=== PATIENT | male | born 1985 | race Caucasian/White ===

== ENCOUNTER 2017-10-07 21:17 | Inpatient (IN) | payer BC ==
[2017-10-07] MEDS ORDERED: ACETAMINOPHEN TAB 500 MG TAB PO STA (22:18)
[2017-10-07] MEDS ORDERED: cefTRIAXone IN SWFI 2,000 MG/20 ML SYRINGE IVP STA (22:18)
[2017-10-07 22:46] LABS: ALT 71 U/L (21-72); AST 49 U/L (17-59); Alkaline Phosphatase 135 U/L (38-126); Anion Gap 17 mmol/L; Blood Urea Nitrogen 20 mg/dL (9-20); Calcium 8.8 mg/dL (8.4-10.2); Carbon Dioxide 23 mmol/L (22-30); Chloride 91 mmol/L (98-107); Glucose 160 mg/dL (74-99); INR 1.1 (<1.2); Partial Thromboplastin Time 24.3 sec (22.0-30.0); Potassium 3.7 mmol/L (3.5-5.1); Sodium 131 mmol/L (137-145)
[2017-10-07 22:49] LABS: Basophils % (A) 0 %; Eosinophils % (A) 0 %; HCT 38.2 % (39.0-53.0); HGB 13.2 gm/dL (13.0-17.5); Lymphocytes # (A) 0.5 k/uL (1.0-4.8); Lymphocytes % (A) 4 %; MCH 27.5 pg (25.0-35.0); MCHC 34.5 g/dL (31.0-37.0); MCV 79.9 fL (80.0-100.0); Mean Platelet Volume 7.3; Monocytes # (A) 0.4 k/uL (0-1.0); Monocytes % (A) 3 %; Neutrophils # (A) 12.2 k/uL (1.3-7.7); Neutrophils % (A) 92 %; Platelet Count 237 k/uL (150-450); RBC 4.79 m/uL (4.30-5.90); RDW 13.4 % (11.5-15.5); WBC 13.3 k/uL (3.8-10.6)
--- NOTE | 2017-10-07 23:03 | XR ---
EXAMINATION TYPE: XR chest 2V DATE OF EXAM: 10/07/2017 COMPARISON: NONE HISTORY: Fever TECHNIQUE: Frontal and lateral views of the chest are obtained. FINDINGS: Heart and mediastinum are normal. Lungs are clear. Diaphragm is normal. Bony thorax appear s normal. IMPRESSION: Normal chest
[2017-10-07] MEDS: SODIUM CHLORIDE 0.9% 500 ML IV SCH (23:07)
--- NOTE | 2017-10-07 23:43 | CT ---
EXAMINATION TYPE: CT abdomen pelvis w con DATE OF EXAM: 10/07/2017 COMPARISON: HISTORY: nausea, fever CT DLP: 1575.50 mGycm Automated exposure control for dose reduction was used. TECHNIQUE: Helical acquisition of images was performed from the lung bases through the pelvis. CONTRAST: Performed without Oral Contrast and with IV Contrast, patient injected with 100 mL of Isovue 300. FINDINGS: Lung bases are clear. There is no pleural effusion. Heart size is normal. There is no pericardial eff usion. Liver spleen pancreas gallbladder appear normal. Bile ducts are not dilated. There is no adrenal mass . Kidneys show satisfactory contrast opacification. There is no hydronephrosis. There is no retroperi toneal adenopathy. There is no ascites. Appendix appears normal. Appendix measures 7 mm. I see no int estinal wall thickening. There are no dilated loops. Bladder distends smoothly. There is no pelvic ma ss. There is no ascites. There is no sign of free air. There is small umbilical hernia that contains fat. The bony structures appear normal. IMPRESSION: NEGATIVE CT SCAN OF THE ABDOMEN AND PELVIS. SMALL UMBILICAL HERNIA.
[2017-10-08] MEDS: SODIUM CHLORIDE 0.9% 500 ML IV SCH ×3 (00:30→01:45)
[2017-10-08 00:38] LABS: Amorphous Sediment,Urine Rare /hpf; Appearance,Urine Clear (Clear); Bacteria,Urine Rare /hpf; Bilirubin,Urine Negative (Negative); Blood,Urine Small (Negative); Color,Urine Yellow; Glucose,Urine (UA) Negative (Negative); Hyaline Casts,Urine 53 /lpf (0-2); Ketones,Urine Negative (Negative); Leukocyte Esterase,Urine Negative (Negative); Mucus,Urine Rare /hpf; Nitrite,Urine Negative (Negative); Protein,Urine 1+ (Negative); RBC,Urine 2 /hpf (0-5); Squamous Epithelial Cell,Urine <1 /hpf (0-4); Urobilinogen,Urine <2.0 mg/dL (<2.0); WBC,Urine 7 /hpf (0-5)
[2017-10-08] MEDS ORDERED: MORPHINE SULFATE 2 MG/ML SYRINGE IV PRN (01:20)
[2017-10-08] MEDS ORDERED: NALOXONE 0.4 MG/ML 1 ML VIAL IV PRN (01:20)
[2017-10-08] MEDS ORDERED: ONDANSETRON 4 MG/2 ML VIAL IVP PRN (01:20)
--- NOTE | 2017-10-08 01:20 | ED ---
General Adult HPI - General Chief complaint: Fever Stated complaint: Diarrhea Time Seen by Provider: 10/07/17 22:17 Source: patient Mode of arrival: ambulatory Limitations: no limitations - History of Present Illness Initial comments: 31 years old male comes in with a fever chills shakes and right upper quadrant pain and the diarrhea ongoing for about 5 days now last evening ER was 101.3 his heart rate was about 120 during examination he feels weak and fatigued his noticed him shaking like to leave and asked what prompted to bring him to the ER. Denies any headache no neck stiffness complaints about the pain in the right upper quadrant area and the diarrhea no frequency urgency dysuria no symptoms of TIA or CVA - Related Data Previous Rx's Medication Instructions Recorded Ondansetron Odt [Zofran Odt] 4 mg PO Q8HR PRN #6 tab 08/26/14 Allergies Allergy/AdvReac Type Severity Reaction Status Date / Time No Known Allergies Allergy Verified 10/07/17 21:45 Review of Systems ROS Statement: Those systems with pertinent positive or pertinent negative responses have been documented in the HPI. ROS Other: All systems not noted in ROS Statement are negative. Past Medical History Past Medical History: Asthma History of Any Multi-Drug Resistant Organisms: None Reported Past Surgical History: No Surgical Hx Reported Past Psychological History: No Psychological Hx Reported Smoking Status: Former smoker Past Alcohol Use History: None Reported Past Drug Use History: Marijuana General Exam - General Exam Comments Initial Comments: General: The patient is awake and alert, in no distress, and does not appear acutely ill. Skin: Skin is warm and dry and no rashes or lesions are noted. Eye: Pupils are equal, round and reactive to light, extra-ocular movements are intact; there is normal conjunctiva bilaterally. Ears, nose, mouth and throat: There are moist mucous membranes and no oral lesions. Neck: The neck is supple, there is no tenderness no signs of meningitis Cardiovascular: There is a regular rate and rhythm. No murmur, rub or gallop is appreciated. Respiratory: To auscultation bilateral, no wheezing no rhonchi no distress respiratory maciel noticed Gastrointestinal: Soft, non-distended, non-tender abdomen without masses or organomegaly noted. There is no rebound or guarding present. Bowel sounds are unremarkable. Back: There is no tenderness to palpation in the midline. There is no obvious deformity. Musculoskeletal: Normal ROM, no tenderness, There is no pedal edema. There is no calf tenderness or swelling. No cords were appreciated. Neurological: CN II-XII intact, Cranial nerves III through XII are intact. There are no obvious motor or sensory deficits. Coordination appears grossly intact. Speech is normal. Psychiatric: Cooperative, appropriate mood & affect, normal judgment. Limitations: no limitations Course Vital Signs 10/07/17 10/07/17 10/08/17 21:42 23:11 00:10 Temperature 103.0 F H 101.3 F H Pulse Rate 133 H 113 H 96 Respiratory 20 18 18 Rate Blood Pressure 116/80 121/72 116/70 O2 Sat by Pulse 99 96 97 Oximetry EKG Findings - EKG Comments: EKG Findings:: EKG shows sinus tachycardia ventricular rate is 125 MO interval is 126 QRS duration is 82 QT/QTc is 480/04/15/2002 and 50 CK G reveals some T- wave inversion in lead [address] noticed some ST segment depression in lead 2 is well noticed S2 depression in V3 V4 V5 and V6 Medical Decision Making - Lab Data Result diagrams: 10/07/17 21:59 10/07/17 21:59 Lab Results 10/07/17 10/07/17 10/07/17 Range/Units 21:59 21:59 21:59 WBC 13.3 H (3.8-10.6) k/uL RBC 4.79 (4.30-5.90) m/uL Hgb 13.2 (13.0-17.5) gm/dL Hct 38.2 L (39.0-53.0) % MCV 79.9 L (80.0-100.0) fL MCH 27.5 (25.0-35.0) pg MCHC 34.5 (31.0-37.0) g/dL RDW 13.4 (11.5-15.5) % Plt Count 237 (150-450) k/uL Neutrophils % 92 % Lymphocytes % 4 % Monocytes % 3 % Eosinophils % 0 % Basophils % 0 % Neutrophils # 12.2 H (1.3-7.7) k/uL Lymphocytes # 0.5 L (1.0-4.8) k/uL Monocytes # 0.4 (0-1.0) k/uL Eosinophils # 0.0 (0-0.7) k/uL Basophils # 0.0 (0-0.2) k/uL PT (9.0-12.0) sec INR (<1.2) APTT (22.0-30.0) sec Sodium 131 L (137-145) mmol/L Potassium 3.7 (3.5-5.1) mmol/L Chloride 91 L (98-107) mmol/L Carbon Dioxide 23 (22-30) mmol/L Anion Gap 17 mmol/L BUN 20 (9-20) mg/dL Creatinine 0.90 (0.66-1.25) mg/dL Est GFR (CKD-EPI)AfAm >90 (>60 ml/min/1.73 sqM) Est GFR (CKD-EPI)NonAf >90 (>60 ml/min/1.73 sqM) Glucose 160 H (74-99) mg/dL Plasma Lactic Acid Gerhard 2.3 H* (0.7-2.0) mmol/L Calcium 8.8 (8.4-10.2) mg/dL Total Bilirubin 1.0 (0.2-1.3) mg/dL AST 49 (17-59) U/L ALT 71 (21-72) U/L Alkaline Phosphatase 135 H (38-126) U/L Total Protein 7.0 (6.3-8.2) g/dL Albumin 4.0 (3.5-5.0) g/dL Urine Color Urine Appearance (Clear) Urine pH (5.0-8.0) Ur Specific [place] (1.001-1.035) Urine Protein (Negative) Urine Glucose (UA) (Negative) Urine Ketones (Negative) Urine Blood (Negative) Urine Nitrite (Negative) Urine Bilirubin (Negative) Urine Urobilinogen (<2.0) mg/dL Ur Leukocyte Esterase (Negative) Urine RBC (0-5) /hpf Urine WBC (0-5) /hpf Ur Squamous Epith Cells (0-4) /hpf Amorphous Sediment (None) /hpf Urine Bacteria (None) /hpf Hyaline Casts (0-2) /lpf Urine Mucus (None) /hpf 10/07/17 10/08/17 Range/Units 21:59 00:04 WBC (3.8-10.6) k/uL RBC (4.30-5.90) m/uL Hgb (13.0-17.5) gm/dL Hct (39.0-53.0) % MCV (80.0-100.0) fL MCH (25.0-35.0) pg MCHC (31.0-37.0) g/dL RDW (11.5-15.5) % Plt Count (150-450) k/uL Neutrophils % % Lymphocytes % % Monocytes % % Eosinophils % % Basophils % % Neutrophils # (1.3-7.7) k/uL Lymphocytes # (1.0-4.8) k/uL Monocytes # (0-1.0) k/uL Eosinophils # (0-0.7) k/uL Basophils # (0-0.2) k/uL PT 11.0 (9.0-12.0) sec INR 1.1 (<1.2) APTT 24.3 (22.0-30.0) sec Sodium (137-145) mmol/L Potassium (3.5-5.1) mmol/L Chloride (98-107) mmol/L Carbon Dioxide (22-30) mmol/L Anion Gap mmol/L BUN (9-20) mg/dL Creatinine (0.66-1.25) mg/dL Est GFR (CKD-EPI)AfAm (>60 ml/min/1.73 sqM) Est GFR (CKD-EPI)NonAf (>60 ml/min/1.73 sqM) Glucose (74-99) mg/dL Plasma Lactic Acid Gerhard (0.7-2.0) mmol/L Calcium (8.4-10.2) mg/dL Total Bilirubin (0.2-1.3) mg/dL AST (17-59) U/L ALT (21-72) U/L Alkaline Phosphatase (38-126) U/L Total Protein (6.3-8.2) g/dL Albumin (3.5-5.0) g/dL Urine Color Yellow Urine Appearance Clear (Clear) Urine pH 6.0 (5.0-8.0) Ur Specific [place] 1.030 (1.001-1.035) Urine Protein 1+ H (Negative) Urine Glucose (UA) Negative (Negative) Urine Ketones Negative (Negative) Urine Blood Small H (Negative) Urine Nitrite Negative (Negative) Urine Bilirubin Negative (Negative) Urine Urobilinogen <2.0 (<2.0) mg/dL Ur Leukocyte Esterase Negative (Negative) Urine RBC 2 (0-5) /hpf Urine WBC 7 H (0-5) /hpf Ur Squamous Epith Cells <1 (0-4) /hpf Amorphous Sediment Rare H (None) /hpf Urine Bacteria Rare H (None) /hpf Hyaline Casts 53 H (0-2) /lpf Urine Mucus Rare H (None) /hpf Critical Care Time Critical Care Time: Visit has a fever ongoing abdominal pain for home last 5 days some diarrhea I do suspect that the source of infection is in the GI tract I urinalysis urine is almost unremarkable chest x-ray is normal her cultures have been doneEKG changes as well I have better troponin now patient fluids lactate is elevated CT abdomen and pelvis is normal white count is 13.3 INR is unremarkable lactate is 2.3 and urinate cultures chest x-rays normal patient is on a broad-spectrum antibiotic and now he be admitted to Dr. Jay Disposition Clinical Impression: Sepsis, Acute electrocardiogram changes, Abdominal pain Disposition: ADMITTED IP TO THIS HOSP Condition: Good Referrals: Varinder Jay MD [Primary Care Provider] - 1-2 days
[2017-10-08] MEDS: ACETAMINOPHEN TAB 325 MG TAB PO PRN ×3 (08:45→23:19)
--- NOTE | 2017-10-08 09:57 | P.CRDCN ---
History of Present Illness Consult date: 10/08/17 Chief complaint: Abdominal discomfort History of present illness: This is a pleasant 31-year-old gentleman with no significant past medical history who presented to the emergency room complaining of abdominal discomfort. The patient symptoms started about a week ago with diarrhea which was persistent for the whole week. For the last few days he has been experiencing fever and chills. When he presented to the emergency room his temperature was around 100 Fahrenheit. He continues to have spikes of high temperature associated with sweating. The patient was checked for C. diff and that came in to be unremarkable. He underwent a computed tomography scan of the abdomen as well and that showed no acute abnormalities. On physical examination he does have epigastric tenderness but without any surgical abdomen. We get involved in his care because of abnormal EKG. The EKG showed sinus tachycardia with nonspecific changes. The heart rate continues to be around 100 125 beats per minutes. The patient denies having any chest pain or chest discomfort or any shortness of breath. The first set of cardiac enzyme came in to be unremarkable. I do feel that the sinus tachycardia is related to the high temperature and also to the distress because of the abdominal discomfort. I'm going to start the patient on small dose of metoprolol at 12.5 mg by mouth twice a day. I will obtain an echocardiogram was Doppler. The patient already is getting worked up for sepsis and blood culture was sent as well. His Lactic acid came in to be slightly elevated. Overall he is hemodynamically stable beside the sinus tachycardia. Past Medical History Past Medical History: Asthma History of Any Multi-Drug Resistant Organisms: None Reported Past Surgical History: No Surgical Hx Reported Past Anesthesia/Blood Transfusion Reactions: No Reported Reaction Additional Past Anesthesia/Blood Transfusion Reaction / Comment(s): no history of blood transfusions Past Psychological History: No Psychological Hx Reported Smoking Status: Never smoker Past Alcohol Use History: None Reported Past Drug Use History: None Reported - Past Family History Father Family Medical History: Cancer, Hypertension Medications and Allergies Allergies Allergy/AdvReac Type Severity Reaction Status Date / Time No Known Allergies Allergy Verified 10/08/17 03:04 Physical Exam Vitals: Vital Signs Temp Pulse Pulse Resp BP BP Pulse Ox 10/08/17 04:00 98.4 F 96 16 133/80 100 10/08/17 01:25 100.1 F H 90 18 114/69 97 10/08/17 00:10 101.3 F H 96 18 116/70 97 10/07/17 23:11 113 H 18 121/72 96 10/07/17 21:42 103.0 F H 133 H 20 116/80 99 Intake and Output 10/07/17 10/08/17 10/08/17 22:59 06:59 14:59 Intake Total 180 Balance 180 Intake: Oral 180 Other: Voiding Method Toilet Weight 113.398 kg 110.3 kg - Constitutional General appearance: no acute distress - Respiratory Respiratory: bilateral: CTA - Cardiovascular Rhythm: regular Heart sounds: normal: S1, S2 Results 10/07/17 21:59 10/07/17 21:59 Cardiac Enzymes 10/07/17 10/07/17 Range/Units 21:59 21:59 AST 49 (17-59) U/L Troponin I 0.023 (0.000-0.034) ng/mL Coagulation 10/07/17 Range/Units 21:59 PT 11.0 (9.0-12.0) sec APTT 24.3 (22.0-30.0) sec CBC 10/07/17 Range/Units 21:59 WBC 13.3 H (3.8-10.6) k/uL RBC 4.79 (4.30-5.90) m/uL Hgb 13.2 (13.0-17.5) gm/dL Hct 38.2 L (39.0-53.0) % Plt Count 237 (150-450) k/uL Comprehensive Metabolic Panel 10/07/17 Range/Units 21:59 Sodium 131 L (137-145) mmol/L Potassium 3.7 (3.5-5.1) mmol/L Chloride 91 L (98-107) mmol/L Carbon Dioxide 23 (22-30) mmol/L BUN 20 (9-20) mg/dL Creatinine 0.90 (0.66-1.25) mg/dL Glucose 160 H (74-99) mg/dL Calcium 8.8 (8.4-10.2) mg/dL AST 49 (17-59) U/L ALT 71 (21-72) U/L Alkaline Phosphatase 135 H (38-126) U/L Total Protein 7.0 (6.3-8.2) g/dL Albumin 4.0 (3.5-5.0) g/dL Current Medications Generic Name Dose Route Start Last Admin Trade Name Freq PRN Reason Stop Dose Admin Acetaminophen 650 mg 10/08/17 01:20 10/08/17 08:45 Tylenol Tab PO 650 mg Q6HR PRN Administration Mild Pain or Fever > 100.5 Metoprolol Tartrate 12.5 mg 10/08/17 21:00 Lopressor PO BID RON Morphine Sulfate 4 mg 10/08/17 01:20 Morphine Sulfate (Inj) IV Q4HR PRN Severe Pain Naloxone HCl 0.2 mg 10/08/17 01:20 Narcan IV Q2M PRN Opioid Reversal Ondansetron HCl 4 mg 10/08/17 01:20 Zofran IVP Q8HR PRN Nausea And Vomiting Intake and Output 10/07/17 10/08/17 10/08/17 22:59 06:59 14:59 Intake Total 180 Balance 180 Intake: Oral 180 Other: Voiding Method Toilet Weight 113.398 kg 110.3 kg 10/07/17 21:59 10/07/17 21:59 Assessment and Plan Assessment: Assessment #1 abdominal discomfort associated with fever and chills and diarrhea #2 sinus tachycardia secondary to the above Plan #1 I would start the patient on small dose of metoprolol #2 obtain an echocardiogram was Doppler #3 the patient is in process to have workup for sepsis #4 C. diff was ruled out #5 continue following up with him.
[2017-10-08] MEDS: METOPROLOL TARTRATE 12.5 MG TAB PO SCH ×2 (11:04→21:00)
--- NOTE | 2017-10-08 16:29 | P.HPIM ---
History of Present Illness This is a 31 years old male past medical history of asthma who presents because of fever and chills of one week duration, with diarrhea but 56 times per day watery, nonbloody. Associated with mild epigastric pain. No nausea vomiting. No cough or shortness of breath. No urinary symptoms. In the ED patient received 1 dose of ceftriaxone Review of Systems CONSTITUTIONAL: No fever, no malaise, no fatigue. HEENT: No recent visual problems or hearing problems. Denied any sore throat. CARDIOVASCULAR: No orthopnea, PND, no palpitations, no syncope. PULMONARY: No shortness of breath, no cough, no hemoptysis. GASTROINTESTINAL: No diarrhea, no nausea, no vomiting, no abdominal pain. Normoactive bowel sounds. NEUROLOGICAL: No headaches, no weakness, no numbness. HEMATOLOGICAL: Denies any bleeding or petechiae. GENITOURINARY: Denies any burning micturition, frequency, or urgency. MUSCULOSKELETAL/RHEUMATOLOGICAL: Denies any joint pain, swelling, or any muscle pain. ENDOCRINE: Denies any polyuria or polydipsia. Past Medical History Past Medical History: Asthma History of Any Multi-Drug Resistant Organisms: None Reported Past Surgical History: No Surgical Hx Reported Past Anesthesia/Blood Transfusion Reactions: No Reported Reaction Additional Past Anesthesia/Blood Transfusion Reaction / Comment(s): no history of blood transfusions Past Psychological History: No Psychological Hx Reported Smoking Status: Never smoker Past Alcohol Use History: None Reported Past Drug Use History: None Reported - Past Family History Father Family Medical History: Cancer, Hypertension Medications and Allergies Home Medications Medication Instructions Recorded Confirmed Type Acetaminophen Tab [Tylenol Tab] 1,000 mg PO Q6HR PRN 10/08/17 10/08/17 History Allergies Allergy/AdvReac Type Severity Reaction Status Date / Time No Known Allergies Allergy Verified 10/08/17 13:19 Physical Exam Vitals: Vital Signs Temp Pulse Pulse Resp BP BP Pulse Ox 10/08/17 12:00 100.8 F H 96 16 127/68 97 10/08/17 08:00 102.2 F H 111 H 16 130/67 98 10/08/17 04:00 98.4 F 96 16 133/80 100 10/08/17 01:25 100.1 F H 90 18 114/69 97 10/08/17 00:10 101.3 F H 96 18 116/70 97 10/07/17 23:11 113 H 18 121/72 96 10/07/17 21:42 103.0 F H 133 H 20 116/80 99 Intake and Output 10/08/17 10/08/17 10/08/17 06:59 14:59 22:59 Intake Total 180 Balance 180 Intake: Oral 180 Other: Voiding Method Toilet Toilet # Voids 1 # Bowel Movements 1 Weight 110.3 kg GENERAL: The patient is alert and oriented x3, not in any acute distress. Well developed, well nourished. HEENT: Pupils are round and equally reacting to light. EOMI. No scleral icterus. No conjunctival pallor. Normocephalic, atraumatic. No pharyngeal erythema. No thyromegaly. CARDIOVASCULAR: S1 and S2 present. No murmurs, rubs, or gallops. PULMONARY: Chest is clear to auscultation, no wheezing or crackles. ABDOMEN: Soft, nontender, nondistended, normoactive bowel sounds. No palpable organomegaly. MUSCULOSKELETAL: No joint swelling or deformity. EXTREMITIES: No cyanosis, clubbing, or pedal edema. NEUROLOGICAL: Gross neurological examination did not reveal any focal deficits. SKIN: No rashes. Results CBC & Chem 7: 10/07/17 21:59 10/07/17 21:59 Labs: Abnormal Lab Results - Last 24 Hours (Table) 10/07/17 10/07/17 10/07/17 Range/Units 21:59 21:59 21:59 WBC 13.3 H (3.8-10.6) k/uL Hct 38.2 L (39.0-53.0) % MCV 79.9 L (80.0-100.0) fL Neutrophils # 12.2 H (1.3-7.7) k/uL Lymphocytes # 0.5 L (1.0-4.8) k/uL Sodium 131 L (137-145) mmol/L Chloride 91 L (98-107) mmol/L Glucose 160 H (74-99) mg/dL Plasma Lactic Acid Gerhard 2.3 H* (0.7-2.0) mmol/L Alkaline Phosphatase 135 H (38-126) U/L Urine Protein (Negative) Urine Blood (Negative) Urine WBC (0-5) /hpf Amorphous Sediment (None) /hpf Urine Bacteria (None) /hpf Hyaline Casts (0-2) /lpf Urine Mucus (None) /hpf 10/08/17 Range/Units 00:04 WBC (3.8-10.6) k/uL Hct (39.0-53.0) % MCV (80.0-100.0) fL Neutrophils # (1.3-7.7) k/uL Lymphocytes # (1.0-4.8) k/uL Sodium (137-145) mmol/L Chloride (98-107) mmol/L Glucose (74-99) mg/dL Plasma Lactic Acid Gerhard (0.7-2.0) mmol/L Alkaline Phosphatase (38-126) U/L Urine Protein 1+ H (Negative) Urine Blood Small H (Negative) Urine WBC 7 H (0-5) /hpf Amorphous Sediment Rare H (None) /hpf Urine Bacteria Rare H (None) /hpf Hyaline Casts 53 H (0-2) /lpf Urine Mucus Rare H (None) /hpf Microbiology - Last 24 Hours (Table) 10/08/17 00:04 Urine Culture - Preliminary Urine,Voided Thrombosis Risk Factor Assmnt - Choose All That Apply Any of the Below Risk Factors Present?: Yes Each Factor Represents 1 point: Obesity (BMI >25), Sepsis (< 1month) Other Risk Factors: No Other congenital or acquired thrombophilia - If yes, enter type in comment: No Thrombosis Risk Factor Assessment Total Risk Factor Score: 2 Thrombosis Risk Factor Assessment Level: Low Risk Assessment and Plan Assessment: -Systemic inflammatory response with fever and tachycardia leukocytosis and -Possible gastroenteritis, with abdominal pain diarrhea -History of asthma Plan: Continue with same treatment, continue with symptomatic treatment. Patient in the emergency room got 1 dose of ceftriaxone, we'll continue with Flagyl and cipro and call ID consult. Cardiology consult is appreciated. Monitor lytes and vitals. Continue with IV fluids. send stool for studies. C. diff is negative GI and DVT prophylaxis. Pain management. Further recommendation based on the clinical course and outcomes
[2017-10-08] MEDS ORDERED: DEXTROSE 5%-0.9% NACL 1,000 ML IV SCH (16:30)
[2017-10-08] MEDS: SODIUM CHLORIDE 0.9% 1,000 ML IV SCH (16:45)
[2017-10-08] MEDS: LEVOFLOXACIN 500MG-D5W PMX 500 MG in DEXTROSE/WATER 1 100ML.BAG IVPB SCH (16:45)
[2017-10-08] MEDS: metroNIDAZOLE-NS PMX 500 MG in SALINE 1 100ML.BAG IVPB SCH ×2 (18:35→23:10)
[2017-10-08 23:19] VITALS: RESP 16
[2017-10-09 06:19] LABS: Basophils % (A) 0 %; Eosinophils # (A) 0.1 k/uL (0-0.7); Eosinophils % (A) 1 %; HCT 34.5 % (39.0-53.0); HGB 11.5 gm/dL (13.0-17.5); Lymphocytes # (A) 0.8 k/uL (1.0-4.8); Lymphocytes % (A) 9 %; MCHC 33.4 g/dL (31.0-37.0); MCV 83.8 fL (80.0-100.0); Mean Platelet Volume 6.7; Monocytes # (A) 0.6 k/uL (0-1.0); Monocytes % (A) 7 %; Neutrophils # (A) 6.7 k/uL (1.3-7.7); Neutrophils % (A) 80 %; Platelet Count 192 k/uL (150-450); RBC 4.11 m/uL (4.30-5.90); RDW 13.9 % (11.5-15.5); WBC 8.4 k/uL (3.8-10.6)
[2017-10-09 06:37] LABS: ALT 115 U/L (21-72); AST 98 U/L (17-59); Albumin 3.1 g/dL (3.5-5.0); Alkaline Phosphatase 203 U/L (38-126); Anion Gap 13 mmol/L; Blood Urea Nitrogen 11 mg/dL (9-20); Carbon Dioxide 26 mmol/L (22-30); Chloride 97 mmol/L (98-107); Glucose 99 mg/dL (74-99); Potassium 3.3 mmol/L (3.5-5.1); Sodium 136 mmol/L (137-145); Total Bilirubin 0.5 mg/dL (0.2-1.3); Total Protein 5.8 g/dL (6.3-8.2)
--- NOTE | 2017-10-09 07:23 | P.PN ---
Subjective Progress Note Date: 10/09/17 Principal diagnosis: Gastroenteritis with EKG changes. The patient is here essentially for severe intractable diarrhea which is now resolving after being rehydrated. He had significant EKG changes and was admitted but now the patient seems more stable. We suspect his symptoms were more related to the severe fever and gastrointestinal distress. He seems to be tolerating diet now and states more formed stool. Objective - Vital Signs Vital signs: Vital Signs Temp 98.6 F 10/09/17 04:00 Pulse 96 10/09/17 04:00 Resp 16 10/09/17 04:00 BP 116/67 10/09/17 04:00 Pulse Ox 96 10/09/17 04:00 Intake & Output 10/08/17 10/09/17 10/09/17 18:59 06:59 18:59 Weight 111.2 kg Other: Voiding Method Toilet Toilet # Voids 1 1 # Bowel Movements 1 - Constitutional General appearance: Present: average body habitus - EENT Eyes: Absent: abnormal pupil - Neck Neck: Absent: other - Respiratory Respiratory: bilateral: CTA - Cardiovascular Rhythm: regular Heart sounds: normal: S1, S2 Abnormal Heart Sounds: Absent: S3 Gallop - Gastrointestinal General gastrointestinal: Present: soft, tenderness Localized gastrointestinal: tender: epigastric periumbilical - Neurologic Neurologic: Present: CNII-XII intact. Absent: focal deficits - Labs CBC & Chem 7: 10/09/17 05:18 10/09/17 05:18 Labs: Abnormal Lab Results - Last 24 Hours (Table) 10/09/17 10/09/17 Range/Units 05:18 05:18 RBC 4.11 L (4.30-5.90) m/uL Hgb 11.5 L (13.0-17.5) gm/dL Hct 34.5 L (39.0-53.0) % Lymphocytes # 0.8 L (1.0-4.8) k/uL Sodium 136 L (137-145) mmol/L Potassium 3.3 L (3.5-5.1) mmol/L Chloride 97 L (98-107) mmol/L Creatinine 0.60 L (0.66-1.25) mg/dL Calcium 8.0 L (8.4-10.2) mg/dL AST 98 H (17-59) U/L ALT 115 H (21-72) U/L Alkaline Phosphatase 203 H (38-126) U/L Total Protein 5.8 L (6.3-8.2) g/dL Albumin 3.1 L (3.5-5.0) g/dL Microbiology - Last 24 Hours (Table) 10/07/17 23:11 Blood Culture - Preliminary Blood No Growth after 24 hours 10/07/17 21:59 Blood Culture - Preliminary Blood No Growth after 24 hours 10/08/17 00:04 Urine Culture - Preliminary Urine,Voided Assessment and Plan (1) SIRS (systemic inflammatory response syndrome) Current Visit: Yes Status: Acute Code(s): R65.10 - SIRS OF NON-INFECTIOUS ORIGIN W/O ACUTE ORGAN DYSFUNCTION SNOMED Code(s): 238403782 (2) Abdominal pain Current Visit: Yes Status: Acute Code(s): R10.9 - UNSPECIFIED ABDOMINAL PAIN SNOMED Code(s): 50370053 (3) Acute electrocardiogram changes Current Visit: Yes Status: Acute Code(s): R94.31 - ABNORMAL ELECTROCARDIOGRAM [ECG] [EKG] SNOMED Code(s): 078409193 Plan: We'll see if the patient tolerates diet today. Anticipate discharge if cleared by consultants later today or first thing in the morning. We'll continue to follow closely. Appreciate cardiology with infectious disease consultation. Time with Patient: Less than 30
[2017-10-09] MEDS ORDERED: PANTOPRAZOLE 40 MG/10 ML VIAL IVP SCH (09:00)
[2017-10-09] MEDS: SODIUM CHLORIDE 0.9% 1,000 ML IV SCH ×2 (09:07→19:58)
[2017-10-09] MEDS: HEPARIN SODIUM,PORCINE 5,000 UNIT/ML 1 ML VIAL SQ SCH ×2 (09:21→19:58)
[2017-10-09] MEDS: metroNIDAZOLE-NS PMX 500 MG in SALINE 1 100ML.BAG IVPB SCH ×2 (09:21→15:59)
[2017-10-09] MEDS: METOPROLOL TARTRATE 12.5 MG TAB PO SCH ×2 (09:21→19:58)
[2017-10-09] MEDS: ACETAMINOPHEN TAB 325 MG TAB PO PRN (09:21)
[2017-10-09] MEDS ORDERED: Potassium Replacement Protocol 1 EACH MISC MISCELLANE PRN (11:14)
[2017-10-09 11:20] VITALS: BMI 33.2
--- NOTE | 2017-10-09 12:10 | P.PN ---
Subjective Progress Note Date: 10/09/17 This is a pleasant 31-year-old gentleman with no significant past medical history who presented to the emergency room complaining of abdominal discomfort. The patient symptoms started about a week ago with diarrhea which was persistent for the whole week. For the last few days he has been experiencing fever and chills. When he presented to the emergency room his temperature was around 100 Fahrenheit. He continues to have spikes of high temperature associated with sweating. The patient was checked for C. diff and that came in to be unremarkable. He underwent a computed tomography scan of the abdomen as well and that showed no acute abnormalities. On physical examination he does have epigastric tenderness but without any surgical abdomen. Cardiology was initially requested to see the patient because of sinus tachycardia. He was seen in consultation yesterday by Dr. Dunbar and initiated on a small dose of metoprolol. Echocardiogram with Doppler study has been performed today but is yet pending. Patient continues to have temperatures in the range of 101. Blood culture so far are negative. His heart rate this morning is in the 80s to 90s. Blood pressure 130/60 with a heart rate in the 80s to 90s this morning, this morning's temperature 100.1. White blood cell count is normal, hemoglobin 11.5, platelet count 192. Sodium 136, potassium 3.3, BUN 11 and creatinine 0.6. AST 98 ALT 1:15 alk phos 203. CAT scan of the abdomen and pelvis was performed which came back to be negative. Objective - Vital Signs Vital signs: Vital Signs Temp 100.1 F H 10/09/17 09:10 Pulse 100 10/09/17 09:10 Resp 16 10/09/17 09:10 BP 130/65 10/09/17 09:10 Pulse Ox 97 10/09/17 09:10 Intake & Output 10/08/17 10/09/17 10/09/17 18:59 06:59 18:59 Intake Total 100 Balance 100 Weight 111.2 kg 111.2 kg Intake: Oral 100 Other: Voiding Method Toilet Toilet Toilet # Voids 1 1 1 # Bowel Movements 1 - Exam PHYSICAL EXAMINATION: GENERAL: 31-year-old gentleman in no. Distress at the time of my examination HEENT: Head is atraumatic, normocephalic. Pupils equal, round. Sclera anicteric. Conjunctiva are clear. Mucous membranes of the mouth are moist. Neck is supple. There is no elevated jugular venous pressure.] bruit is heard. HEART EXAMINATION: Heart S1, S2 normal. No murmur or gallop heard. CHEST EXAMINATION: Lungs are clear to auscultation and precussion. No chest wall tenderness is noted on palpation or with deep breathing. ABDOMEN: Soft, mild generalized tenderness . Bowel sounds are heard. No organomegaly noted. EXTREMITIES: 2+ peripheral pulses with no evidence of peripheral edema and no calf tenderness noted. NEUROLOGIC patient is awake, alert and oriented ?-3. . - Labs CBC & Chem 7: 10/09/17 05:18 10/09/17 05:18 Labs: Abnormal Lab Results - Last 24 Hours (Table) 10/09/17 10/09/17 Range/Units 05:18 05:18 RBC 4.11 L (4.30-5.90) m/uL Hgb 11.5 L (13.0-17.5) gm/dL Hct 34.5 L (39.0-53.0) % Lymphocytes # 0.8 L (1.0-4.8) k/uL Sodium 136 L (137-145) mmol/L Potassium 3.3 L (3.5-5.1) mmol/L Chloride 97 L (98-107) mmol/L Creatinine 0.60 L (0.66-1.25) mg/dL Calcium 8.0 L (8.4-10.2) mg/dL AST 98 H (17-59) U/L ALT 115 H (21-72) U/L Alkaline Phosphatase 203 H (38-126) U/L Total Protein 5.8 L (6.3-8.2) g/dL Albumin 3.1 L (3.5-5.0) g/dL Microbiology - Last 24 Hours (Table) 10/07/17 23:11 Blood Culture - Preliminary Blood No Growth after 24 hours 10/07/17 21:59 Blood Culture - Preliminary Blood No Growth after 24 hours 10/08/17 00:04 Urine Culture - Preliminary Urine,Voided Assessment and Plan Plan: Assessment and plan #1 abdominal discomfort with associated diarrhea, fever and chills. CT of the abdomen and pelvis were negative. Elevated liver enzymes #2 sinus tachycardia, secondary to above Plan We will review the patient's echocardiogram with Doppler study, continue current dose of metoprolol. If the echo is normal, we will follow this patient on a when necessary basis, please don't hesitate to call with any questions. DNP note has been reviewed, I agree with a documented findings and plan of care. Patient was seen and examined.
[2017-10-09] MEDS: POTASSIUM CHLORIDE ER 20 MEQ TAB.ER PO SCH ×2 (12:13→16:00)
[2017-10-09] MEDS: LEVOFLOXACIN 500MG-D5W PMX 500 MG in DEXTROSE/WATER 1 100ML.BAG IVPB SCH (17:16)
--- NOTE | 2017-10-09 18:37 | ECHOF ---
Referral Reason:tachycardia MEASUREMENTS -------- HEIGHT: 182.9 cm WEIGHT: 111.1 kg BP: 116/67 RVIDd: 3.3 cm (< 3.3) IVSd: 1.3 cm (0.6 - 1.1) LVIDd: 5.0 cm (3.9 - 5.3) LVPWd: 1.2 cm (0.6 - 1.1) IVSs: 1.6 cm LVIDs: 3.4 cm LVPWs: 1.6 cm LA Diam: 3.0 cm (2.7 - 3.8) LAESV Index (A-L): 15.51 ml/m Ao Diam: 3.7 cm (2.0 - 3.7) AV Cusp: 2.6 cm (1.5 - 2.6) MV EXCURSION: 17.007 mm (> 18.000) MV EF SLOPE: 134 mm/s (70 - 150) EPSS: 0.5 cm MV E Enrike: 0.85 m/s MV DecT: 175 ms MV A Enrike: 0.69 m/s MV E/A Ratio: 1.23 RAP: 15.00 mmHg FINDINGS -------- Sinus rhythm. This was a technically good study. The left ventricular size is normal. There is mild concentric left ventricular hypertrophy. Overa ll left ventricular systolic function is normal with, an EF between 60 - 65 %. The right ventricle is mildly enlarged. Normal LA size by volume 22+/-6 ml/m2. The right atrium is normal in size. The aortic valve is trileaflet and appears structurally normal. The mitral valve is normal. The tricuspid valve appears structurally normal. Trace/mild (physiologic) pulmonic regurgitation. The aortic root size is normal. The inferior vena cava is dilated with no significant inspiratory collapse which is consistent estima keith right atrial pressure of >20 mmHg. There is no pericardial effusion. CONCLUSIONS -------- 1. Sinus rhythm. 2. This was a technically good study. 3. The left ventricular size is normal. 4. There is mild concentric left ventricular hypertrophy. 5. Overall left ventricular systolic function is normal with, an EF between 60 - 65 %. 6. The right ventricle is mildly enlarged. 7. Normal LA size by volume 22+/-6 ml/m2. 8. The right atrium is normal in size. 9. The aortic valve is trileaflet and appears structurally normal. 10. The mitral valve is normal. 11. The tricuspid valve appears structurally normal. 12. Trace/mild (physiologic) pulmonic regurgitation. 13. The aortic root size is normal. 14. The inferior vena cava is dilated with no significant inspiratory collapse which is consistent es timated right atrial pressure of >20 mmHg. 15. There is no pericardial effusion. NUMBERER AND WIRER: Puja Agustin RDCS
[2017-10-10 04:04] VITALS: TEMP 99.4
--- NOTE | 2017-10-10 06:58 | P.DS ---
Providers Date of admission: 10/08/17 01:20 Attending physician: Varinder Jay Consults: 10/08/17 01:20 Consult Physician Stat Consulting Provider: Hiram Link Consult Reason/Comments: acute EKG changes Do you want consulting provider notified?: Yes 10/08/17 16:29 Consult Physician Routine Consulting Provider: Rubi Rajput Consult Reason/Comments: elevated WBC,elevated temperatures,diarrhea x1 week Do you want consulting provider notified?: Yes, Notify in am Primary care physician: Varinder Jay - Discharge Diagnosis(es) (1) SIRS (systemic inflammatory response syndrome) Current Visit: Yes Status: Acute (2) Abdominal pain Current Visit: Yes Status: Acute (3) Acute electrocardiogram changes Current Visit: Yes Status: Acute Hospital Course: This discharge summary 31-year-old white male essentially minute for gastroenteritis but had an normal chest pain and shortness of breath. We suspect that this is related to the systemic inflammatory response with diarrhea and dehydration. He is placed on low-dose beta soumya we will temporary keep this on him until he recovers. The patient seen by cardiology and cleared after echocardiogram was fairly normal. The patient's follow-up with me in one week. Patient Condition at Discharge: Good Plan - Discharge Summary New Discharge Prescriptions: New Acetaminophen Tab [Tylenol] 650 mg PO Q6HR PRN tab PRN Reason: Mild Pain Or Fever > 100.5 Levofloxacin [Levaquin] 500 mg PO Q24H #7 tab Metoprolol Tartrate [Lopressor] 12.5 mg PO BID #60 tab metroNIDAZOLE [Flagyl] 500 mg PO TID #21 tab Discontinued Acetaminophen Tab [Tylenol Tab] 1,000 mg PO Q6HR PRN PRN Reason: Pain Or Fever > 100.5 Discharge Medication List Acetaminophen Tab [Tylenol] 650 mg PO Q6HR PRN tab 10/10/17 [Rx] Levofloxacin [Levaquin] 500 mg PO Q24H #7 tab 10/10/17 [Rx] Metoprolol Tartrate [Lopressor] 12.5 mg PO BID #60 tab 10/10/17 [Rx] metroNIDAZOLE [Flagyl] 500 mg PO TID #21 tab 10/10/17 [Rx] Follow up Appointment(s)/Referral(s): Varinder Jay MD [Primary Care Provider] - 10/16/17 3:20 pm (MONDAY) Discharge Disposition: HOME SELF-CARE
--- NOTE | 2017-10-10 07:21 | CONS ---
CONSULTATION DATE OF SERVICE: 10/09/2017 REASON FOR CONSULTATION: Fever. HISTORY OF PRESENT ILLNESS: The patient is a 31-year-old male, otherwise healthy, presenting to the ER at [facility] on 10/07/2017 with chief complaints of fever, chills and right upper quadrant pain diarrhea. The patient symptoms started with diarrhea about 5 days prior to presentation to hospital. The patient did have multiple loose stools with no blood or mucus in it. The patient felt nauseated, but no vomiting. Subsequently start having a fever of 101 degrees Fahrenheit with rigors and chills and he also had pain mostly in the epigastric or the upper quadrant area. The pain described to be more of a dull aching pain 4 to 5 over 10 and no radiation. With these symptoms, the patient presented to the [facility] ER. The patient did have a CT of abdomen and pelvis that was done with oral and IV contrast. CT abdominal pelvis was negative except small umbilical hernia. The patient did have white count of 13.0 on presentation, which has normalized to 8.4 this morning. The patient did have stool for C. difficile, which came back negative. Stool cultures are currently pending. Blood culture has been negative. Infectious Disease was consulted for further recommendation regarding antibiotic therapy as the patient did have fever of 103 on presentation down to 100.1 this morning. The patient did mention overall he is feeling better. His abdominal pain has resolved and he did have small bowel movement today. Denies having any chest pain or shortness of breath or cough. REVIEW OF SYSTEMS: CONSTITUTIONAL: Positive for weakness along with the fever. EYES: No complaint. ENT: No complaint. RESPIRATORY: No complaint. CARDIOVASCULAR: No complaint. GENITOURINARY: No complaint. GASTROINTESTINAL: As per HPI. MUSCULOSKELETAL: No complaint. INTEGUMENTARY: No complaint. PSYCHOLOGICAL: No complaint. ENDOCRINE: No complaint. NEUROLOGIC: No complaint. PAST MEDICAL HISTORY: His past medical history is significant for asthma. PAST SURGICAL HISTORY: No major surgeries. SOCIAL HISTORY: Denies smoking, drinking or drug use. FAMILY HISTORY: Father had history of cancer and hypertension. ALLERGIES: No known drug allergies. MEDICATION: Medications include the patient is currently on Tylenol, heparin, Levaquin, Lopressor, Flagyl, Narcan, Protonix. PHYSICAL EXAMINATION: On examination, blood pressure is 130/69 with a pulse of 90, temperature 98.9. He is 98% on room air. General description is a middle-aged male lying in bed in no distress. No tachypnea or accessory muscle of respiration use. HEENT examination shows slight pallor. No scleral icterus. Oral mucous membrane is dry. No pharyngeal erythema or thrush. NECK: Trachea central. No thyromegaly. LUNGS: Unlabored breathing, clear to auscultation anteriorly. No wheeze or crackle. HEART: S1, S2. Regular rate and rhythm. ABDOMEN: Soft, no tenderness. No guarding or rigidity . No organomegaly. EXTREMITIES: No edema of feet. SKIN EXAMINATION: No rash or mass palpable. NEUROLOGICAL: Patient is awake, alert, oriented x2. Mood and affect normal. LABS: Hemoglobin 11.5, white count 8.4, admission white count was 13.3. BUN of 11, creatinine 0.60. Potassium was 3.3. Liver enzymes were mildly elevated. Stool for C difficile has been negative. DIAGNOSTIC IMPRESSION AND PLAN: Patient presenting to the hospital with nausea, vomiting and diarrhea. Predominant symptoms subsequent start having a fever with a question of possible viral or bacterial etiology now with mildly elevated liver enzymes. We will make sure we are not dealing with a case of a hepatitis A. PLAN: 1. We will check an acute hepatitis panel. 2. We will switch over Levaquin and Flagyl to p.o. 3. IV fluids. 4. We will follow up on the stool culture and investigation to further adjust medication if needed. Thank you for this consultation. Will follow this patient along with you. MMODL / IJN: [id number] /
[2017-10-10] MEDS ORDERED: PANTOPRAZOLE 40 MG TABLET PO SCH (07:30)
[2017-10-10] MEDS: METOPROLOL TARTRATE 12.5 MG TAB PO SCH (07:40)
[2017-10-10] MEDS: HEPARIN SODIUM,PORCINE 5,000 UNIT/ML 1 ML VIAL SQ SCH (07:41)
[2017-10-10] MEDS: SODIUM CHLORIDE 0.9% 1,000 ML IV SCH (07:41)
[2017-10-10 07:42] VITALS: BP 141/80; PULSE 98
[2017-10-10] MEDS ORDERED: LEVOFLOXACIN 500 MG TAB PO SCH (09:00)
[2017-10-10] MEDS ORDERED: metroNIDAZOLE 500 MG TAB PO SCH (09:00)
[2017-10-10 12:46] LABS: Hepatitis A Antibody IgM Non-Reactive (Non-Reactive); Hepatitis B Core IgM Non-Reactive (Non-Reactive)
== END 2017-10-10 08:01 | disposition home or self-care (01) | DRG 392 ==
LOC: EC 21:17 → 6SEL 10-08 01:20
PROVIDERS: ADMIT Family Medicine; ATTEND Family Medicine
DX: K52.9 Noninfective gastroenteritis and colitis, unspecified (principal); E86.0 Dehydration; J45.909 Unspecified asthma, uncomplicated; R94.31 Abnormal electrocardiogram [ECG] [EKG]; Z87.891 Personal history of nicotine dependence; Z82.49 Family history of ischemic heart disease and other diseases of the circulatory system; Z80.9 Family history of malignant neoplasm, unspecified
CPT/HCPCS: 36415; 71046; 74177; 80053; 80074; 81001; 83605; 83630; 84484; 85025; 85610; 85730; 87040; 87045; 87046; 87086; 87324; 87328; 87329; 93005; 93306; 94760; 96361; 96374; 99285

== ENCOUNTER 2018-09-15 15:09 | Emergency (ER) | payer BC ==
[2018-09-15 15:17] VITALS: TEMP 97.6
[2018-09-15] MEDS ORDERED: KETOROLAC 60 MG/2 ML VIAL IVP STA (15:27)
[2018-09-15] MEDS ORDERED: DIAZEPAM 5 MG/ML 2 ML INJ IVP STA (15:28)
--- NOTE | 2018-09-15 15:51 | ED ---
General Adult HPI - General Source: patient, RN notes reviewed Mode of arrival: wheelchair Limitations: no limitations <Oj Brunson - Last Filed: 09/15/18 16:32> <Syed De Los Santos - Last Filed: 09/15/18 17:46> - General Chief complaint: Syncope Stated complaint: Back pain Time Seen by Provider: 09/15/18 15:15 - History of Present Illness Initial comments: This a 32-year-old male presents emergency Department complaining of a five-day history of right lower back pain. Patient states he thinks he tweaked it 5 days ago but it was only hurting a little bit until yesterday when he bent over to do something and the pain became excruciating. Patient states today he was going to the bathroom and the pain got so bad he got lightheaded and passed out. Patient states he did hit his head and scraped his left elbow but he has no headache now he has no numbness no weakness. Patient denies any difficulty urinating or having any urinary retention. Patient denies any numbness or weakness. Patient denies any radiation of pain. Patient states the right lower back is tender to palpation there is no central spinous process tenderness. Patient states when he moves it feels like a spasm. Patient states lying down flat alleviates most of the pain (Oj Brunson) - Related Data Home Medications Medication Instructions Recorded Confirmed Naproxen 500 mg PO Q12H PRN 09/15/18 09/15/18 Previous Rx's Medication Instructions Recorded Ketorolac [Toradol] 10 mg PO Q6HR #20 tab 09/15/18 Orphenadrine [Norflex] 100 mg PO Q12H #7 tablet.er 09/15/18 predniSONE 20 mg PO BID #10 tab 09/15/18 Allergies Allergy/AdvReac Type Severity Reaction Status Date / Time No Known Allergies Allergy Verified 09/15/18 15:46 Review of Systems ROS Other: All systems not noted in ROS Statement are negative. <Oj Brunson - Last Filed: 09/15/18 16:32> ROS Other: All systems not noted in ROS Statement are negative. <Syed De Los Santos - Last Filed: 09/15/18 17:46> ROS Statement: Those systems with pertinent positive or pertinent negative responses have been documented in the HPI. Past Medical History Past Medical History: Asthma History of Any Multi-Drug Resistant Organisms: None Reported Past Surgical History: No Surgical Hx Reported Past Anesthesia/Blood Transfusion Reactions: No Reported Reaction Additional Past Anesthesia/Blood Transfusion Reaction / Comment(s): no history of blood transfusions Past Psychological History: No Psychological Hx Reported Smoking Status: Never smoker Past Alcohol Use History: None Reported Past Drug Use History: None Reported - Past Family History Father Family Medical History: Cancer, Hypertension <Oj Brunson - Last Filed: 09/15/18 16:32> General Exam Limitations: no limitations <Oj Brunson - Last Filed: 09/15/18 16:32> - General Exam Comments Initial Comments: GENERAL: Patient is well-developed and well-nourished. Patient is nontoxic and well- hydrated and is in moderate distress. ENT: Neck is soft and supple. No significant lymphadenopathy is noted. Oropharynx is clear. Moist mucous membranes. Neck has full range of motion without eliciting any pain. EYES: The sclera were anicteric and conjunctiva were pink and moist. Extraocular movements were intact and pupils were equal round and reactive to light. Eyelids were unremarkable. PULMONARY: Unlabored respirations. Good breath sounds bilaterally. No audible rales rhonchi or wheezing was noted. CARDIOVASCULAR: There is a regular rate and rhythm without any murmurs gallops or rubs. ABDOMEN: Soft and nontender with normal bowel sounds. No palpable organomegaly was noted. There is no palpable pulsatile mass. SKIN: Skin is clear with no lesions or rashes and otherwise unremarkable. NEUROLOGIC: Patient is alert and oriented x3. Cranial nerves II through XII are grossly intact. Motor and sensory are also intact. Normal speech, volume and content. Symmetrical smile. MUSCULOSKELETAL: Normal extremities with adequate strength and full range of motion. Patient has tenderness to palpation in the right lower back in the paraspinous muscle region. Patient has no spinous process tenderness. LYMPHATICS: No significant lymphadenopathy is noted PSYCHIATRIC: Normal psychiatric evaluation. (Oj Brunson) Course <Syed De Los Santos - Last Filed: 09/15/18 17:46> Vital Signs 09/15/18 09/15/18 15:15 17:18 Temperature 97.6 F Pulse Rate 86 75 Respiratory 16 18 Rate Blood Pressure 133/91 131/84 O2 Sat by Pulse 96 95 Oximetry - Reevaluation(s) Reevaluation #1: 09/15/18 17:44 The patient was endorsed to me by Dr. Brunson at her shift change pending improvement in his pain after medication given. Patient did hurt his back with some pain radiating down to the right knee at times he was sent home from work last night due to the pain he does express improvement this is likely muscular skeletal lumbar strain he'll be discharged he is off work tonight and tomorrow night with a work note oral medications follow-up with Dr. Jay and return as needed (Syed De Los Santos) Medical Decision Making <Oj Brunson - Last Filed: 09/15/18 16:32> - Medical Decision Making EKG shows normal sinus rhythm at 60 bpm [place] interval is 1:30 QRS is 98 QT interval 404 QTC is 429. Patient's EKG shows no ST segment elevation or depression or T wave abnormalities are noted. Patient a bladder scan done and he had 0 urine in his bladder. Patient had no radiation of pain patient had no numbness or weakness Dr. De Los Santos will be taking over the care of this patient at 5 PM (Oj Brunson) Disposition <Oj Brunson - Last Filed: 09/15/18 16:32> Is patient prescribed a controlled substance at d/c from ED?: No <Syed De Los Santos - Last Filed: 09/15/18 17:46> Clinical Impression: Acute lumbar myofascial strain, Vasovagal syncope Disposition: HOME SELF-CARE Condition: Good Instructions (If sedation given, give patient instructions): Low Back Strain (ED), Lower Back Exercises (ED), Core Strengthening Exercises (ED) Prescriptions: Orphenadrine [Norflex] 100 mg PO Q12H #7 tablet.er predniSONE 20 mg PO BID #10 tab Ketorolac [Toradol] 10 mg PO Q6HR #20 tab Referrals: Varinder Jay MD [Primary Care Provider] - 1-2 days
[2018-09-15] MEDS ORDERED: HYDROmorphone 0.5 MG/0.5 ML SYRINGE IVP STA (16:31)
--- NOTE | 2018-09-15 16:34 | XR ---
EXAMINATION TYPE: XR lumbosacral spine min 4V DATE OF EXAM: 09/15/2018 COMPARISON: NONE HISTORY: Back pain TECHNIQUE: 5 views FINDINGS: Lumbar vertebra have normal spacing and alignment. Posterior elements are intact. Sacroilia c joints appear normal. IMPRESSION: Negative lumbar spine exam.
[2018-09-15 17:18] VITALS: BP 131/84; PULSE 75; RESP 18
[2018-09-15] MEDS ORDERED: predniSONE 50 MG TAB PO STA (17:42)
== END 2018-09-15 18:12 | disposition home or self-care (01) ==
LOC: EC 15:09
DX: S39.012A Strain of muscle, fascia and tendon of lower back, initial encounter (principal); R55 Syncope and collapse; X58.XXXA Exposure to other specified factors, initial encounter
CPT/HCPCS: 99284 ×2; 96374 ×2; 96375 ×3; 51798; 93005; 72110; J3360; J1885; J7512; J1170

== ENCOUNTER 2021-02-03 06:24 | Inpatient (IN) | payer BC, OTHER ==
[2021-02-03] MEDS ORDERED: MORPHINE SULFATE 4 MG/ML SYRINGE IV STA (06:44)
[2021-02-03] MEDS ORDERED: ONDANSETRON 4 MG/2 ML VIAL IVP STA (06:44)
[2021-02-03] MEDS ORDERED: SODIUM CHLORIDE 0.9% 1,000 ML IV STA (06:44)
--- NOTE | 2021-02-03 06:47 | ED ---
General Adult HPI - General Chief complaint: Abdominal Pain Stated complaint: Abd Pain Time Seen by Provider: 02/03/21 06:32 Source: patient, RN notes reviewed Mode of arrival: ambulatory Limitations: no limitations - History of Present Illness Initial comments: 35-year-old male presents to the emergency room for a chief complaint of abdominal pain. Patient states he has had right lower quadrant abdominal pain that started yesterday. Patient states nothing seems to help the pain. States that he has had some nausea vomiting. Yesterday he had a couple episodes of diarrhea but that has since resolved. Patient states she has not had an appetite and has not had anything to eat since yesterday afternoon. He denies fevers. No history of intra-abdominal surgeries.Patient has no other complaints at this time including shortness of breath, chest pain, headache, or visual changes. - Related Data Home Medications Medication Instructions Recorded Confirmed No Known Home Medications 02/03/21 02/03/21 Allergies Allergy/AdvReac Type Severity Reaction Status Date / Time No Known Allergies Allergy Verified 02/03/21 09:13 Review of Systems ROS Statement: Those systems with pertinent positive or pertinent negative responses have been documented in the HPI. ROS Other: All systems not noted in ROS Statement are negative. Past Medical History Past Medical History: Asthma History of Any Multi-Drug Resistant Organisms: None Reported Past Surgical History: No Surgical Hx Reported Past Anesthesia/Blood Transfusion Reactions: No Reported Reaction Additional Past Anesthesia/Blood Transfusion Reaction / Comment(s): no history of blood transfusions Past Psychological History: No Psychological Hx Reported Smoking Status: Never smoker Past Alcohol Use History: None Reported Past Drug Use History: Marijuana - Past Family History Father Family Medical History: Cancer, Hypertension General Exam Limitations: no limitations General appearance: alert, in no apparent distress Head exam: Present: atraumatic Eye exam: Present: normal appearance, PERRL, EOMI. Absent: scleral icterus, conjunctival injection ENT exam: Present: normal exam, mucous membranes moist Neck exam: Present: normal inspection, full ROM. Absent: tenderness Respiratory exam: Present: normal lung sounds bilaterally. Absent: respiratory distress, wheezes Cardiovascular Exam: Present: regular rate, normal rhythm, normal heart sounds GI/Abdominal exam: Present: soft, tenderness (Tenderness noted to the right lower quadrant, no tenderness elsewhere in the abdomen. Negative Rovsing sign.), normal bowel sounds. Absent: distended Neurological exam: Present: alert Course Vital Signs 02/03/21 02/03/21 02/03/21 06:26 06:36 08:27 Temperature 97.6 F 98.8 F Pulse Rate 95 81 70 Respiratory 18 18 18 Rate Blood Pressure 109/79 130/88 124/81 O2 Sat by Pulse 96 99 100 Oximetry 02/03/21 02/03/21 10:00 13:09 Temperature 97.9 F Pulse Rate 72 Respiratory 18 16 Rate Blood Pressure 134/78 O2 Sat by Pulse 98 98 Oximetry Medical Decision Making - Medical Decision Making Vitals are stable. Patient does have abdominal tenderness especially right lower quadrant. Leukocytosis is noted on laboratory evaluation. CT abdomen and pelvis did reveal acute appendicitis without definite perforation. At this time patient was treated with IV antibiotics. Dr. De La Torre was consulted, will accept admission. - Lab Data Result diagrams: 02/03/21 07:15 02/03/21 07:15 Lab Results 02/03/21 02/03/21 02/03/21 Range/Units 07:15 07:15 07:15 WBC 16.1 H (3.8-10.6) k/uL RBC 5.14 (4.30-5.90) m/uL Hgb 14.6 (13.0-17.5) gm/dL Hct 42.8 (39.0-53.0) % MCV 83.2 (80.0-100.0) fL MCH 28.3 (25.0-35.0) pg MCHC 34.1 (31.0-37.0) g/dL RDW 12.5 (11.5-15.5) % Plt Count 277 (150-450) k/uL MPV 7.7 Neutrophils % 83 % Lymphocytes % 10 % Monocytes % 6 % Eosinophils % 0 % Basophils % 0 % Neutrophils # 13.4 H (1.3-7.7) k/uL Lymphocytes # 1.7 (1.0-4.8) k/uL Monocytes # 0.9 (0-1.0) k/uL Eosinophils # 0.0 (0-0.7) k/uL Basophils # 0.0 (0-0.2) k/uL Sodium 136 L (137-145) mmol/L Potassium 3.8 (3.5-5.1) mmol/L Chloride 100 (98-107) mmol/L Carbon Dioxide 23 (22-30) mmol/L Anion Gap 13 mmol/L BUN 10 (9-20) mg/dL Creatinine 0.75 (0.66-1.25) mg/dL Est GFR (CKD-EPI)AfAm >90 (>60 ml/min/1.73 sqM) Est GFR (CKD-EPI)NonAf >90 (>60 ml/min/1.73 sqM) Glucose 127 H (74-99) mg/dL Plasma Lactic Acid Gerhard (0.7-2.0) mmol/L Calcium 9.8 (8.4-10.2) mg/dL Total Bilirubin 1.0 (0.2-1.3) mg/dL AST 19 (17-59) U/L ALT 24 (4-49) U/L Alkaline Phosphatase 58 (38-126) U/L Total Protein 7.6 (6.3-8.2) g/dL Albumin 4.4 (3.5-5.0) g/dL Amylase 62 (30-110) U/L Lipase 84 (23-300) U/L Urine Color Light Yellow Urine Appearance Clear (Clear) Urine pH 8.0 (5.0-8.0) Ur Specific [place] 1.041 H (1.001-1.035) Urine Protein Negative (Negative) Urine Glucose (UA) Negative (Negative) Urine Ketones Negative (Negative) Urine Blood Negative (Negative) Urine Nitrite Negative (Negative) Urine Bilirubin Negative (Negative) Urine Urobilinogen <2.0 (<2.0) mg/dL Ur Leukocyte Esterase Negative (Negative) Coronavirus (PCR) (Not Detectd) 02/03/21 02/03/21 Range/Units 07:15 07:15 WBC (3.8-10.6) k/uL RBC (4.30-5.90) m/uL Hgb (13.0-17.5) gm/dL Hct (39.0-53.0) % MCV (80.0-100.0) fL MCH (25.0-35.0) pg MCHC (31.0-37.0) g/dL RDW (11.5-15.5) % Plt Count (150-450) k/uL MPV Neutrophils % % Lymphocytes % % Monocytes % % Eosinophils % % Basophils % % Neutrophils # (1.3-7.7) k/uL Lymphocytes # (1.0-4.8) k/uL Monocytes # (0-1.0) k/uL Eosinophils # (0-0.7) k/uL Basophils # (0-0.2) k/uL Sodium (137-145) mmol/L Potassium (3.5-5.1) mmol/L Chloride (98-107) mmol/L Carbon Dioxide (22-30) mmol/L Anion Gap mmol/L BUN (9-20) mg/dL Creatinine (0.66-1.25) mg/dL Est GFR (CKD-EPI)AfAm (>60 ml/min/1.73 sqM) Est GFR (CKD-EPI)NonAf (>60 ml/min/1.73 sqM) Glucose (74-99) mg/dL Plasma Lactic Acid Gerhard 1.6 (0.7-2.0) mmol/L Calcium (8.4-10.2) mg/dL Total Bilirubin (0.2-1.3) mg/dL AST (17-59) U/L ALT (4-49) U/L Alkaline Phosphatase (38-126) U/L Total Protein (6.3-8.2) g/dL Albumin (3.5-5.0) g/dL Amylase (30-110) U/L Lipase (23-300) U/L Urine Color Urine Appearance (Clear) Urine pH (5.0-8.0) Ur Specific [place] (1.001-1.035) Urine Protein (Negative) Urine Glucose (UA) (Negative) Urine Ketones (Negative) Urine Blood (Negative) Urine Nitrite (Negative) Urine Bilirubin (Negative) Urine Urobilinogen (<2.0) mg/dL Ur Leukocyte Esterase (Negative) Coronavirus (PCR) Not Detected (Not Detectd) Disposition Clinical Impression: Appendicitis Disposition: ADMITTED IP TO THIS HOSP Is patient prescribed a controlled substance at d/c from ED?: No Time of Disposition: 15:32
[2021-02-03 07:33] LABS: Basophils % (A) 0 %; Eosinophils % (A) 0 %; HCT 42.8 % (39.0-53.0); HGB 14.6 gm/dL (13.0-17.5); Lymphocytes # (A) 1.7 k/uL (1.0-4.8); Lymphocytes % (A) 10 %; MCH 28.3 pg (25.0-35.0); MCHC 34.1 g/dL (31.0-37.0); MCV 83.2 fL (80.0-100.0); Mean Platelet Volume 7.7; Monocytes # (A) 0.9 k/uL (0-1.0); Monocytes % (A) 6 %; Neutrophils # (A) 13.4 k/uL (1.3-7.7); Neutrophils % (A) 83 %; Platelet Count 277 k/uL (150-450); RBC 5.14 m/uL (4.30-5.90); RDW 12.5 % (11.5-15.5); WBC 16.1 k/uL (3.8-10.6)
[2021-02-03 07:50] LABS: ALT 24 U/L (4-49); AST 19 U/L (17-59); African American GFR (CKD) >90 (>60 ml/min/1.73 sqM); Albumin 4.4 g/dL (3.5-5.0); Alkaline Phosphatase 58 U/L (38-126); Amylase 62 U/L (30-110); Anion Gap 13 mmol/L; Blood Urea Nitrogen 10 mg/dL (9-20); Calcium 9.8 mg/dL (8.4-10.2); Carbon Dioxide 23 mmol/L (22-30); Chloride 100 mmol/L (98-107); Glucose 127 mg/dL (74-99); Lipase 84 U/L (23-300); Non-African American GFR(CKD) >90 (>60 ml/min/1.73 sqM); Potassium 3.8 mmol/L (3.5-5.1); Sodium 136 mmol/L (137-145); Total Protein 7.6 g/dL (6.3-8.2)
--- NOTE | 2021-02-03 08:20 | CT ---
EXAMINATION TYPE: CT abdomen pelvis w con DATE OF EXAM: 02/03/2021 COMPARISON: 10/07/2017 HISTORY: Abd pain CT DLP: 1667 mGycm CONTRAST: CT scan of the abdomen and pelvis is performed without Oral Contrast and with IV Contrast, patient in jected with 100 mL of Isovue 300. FINDINGS: LUNG BASES-: No visible nodule. No infiltrate. LIVER/GB: No calcified gallstones. No space occupying hepatic lesion. Biliary tree is of normal ca liber. PANCREAS: No inflammation. No distinct mass. SPLEEN: No splenic enlargement. No lesion seen. ADRENALS: No nodule. No thickening. KIDNEYS/BLADDER: No hydronephrosis. No nephrolithiasis. No distinct renal mass. Urinary bladder g rossly unremarkable. BOWEL: There is appendicolith with wall thickening of the appendix and moderate to severe surrounding inflammatory change. Small amount of fluid is noted adjacent to the appendix. No drainable abscess a t this time. The findings are compatible with acute appendicitis. The appendix is dilated to 1.2 cm. Normal bowel caliber. No inflammation. GENITAL ORGANS: No gross abnormality. LYMPH NODES: No greater than 1cm abdominal or pelvic lymph nodes are appreciated. AORTA: No significant abnormality. OSSEOUS STRUCTURES: No significant abnormality is seen. OTHER: No significant additional abnormality is seen. IMPRESSION: 1. Acute appendicitis without definite perforation at this time.
[2021-02-03] MEDS ORDERED: PIPERACILLIN-TAZOBACTAM 3.375 GM in SODIUM CHLORIDE 0.9% 100 ML IVPB STA (08:26)
[2021-02-03] MEDS ORDERED: HYDROmorphone 0.5 MG/0.5 ML SYRINGE IVP STA (08:43)
[2021-02-03 08:48] LABS: Appearance,Urine Clear (Clear); Bilirubin,Urine Negative (Negative); Blood,Urine Negative (Negative); Color,Urine Light Yellow; Glucose,Urine (UA) Negative (Negative); Ketones,Urine Negative (Negative); Leukocyte Esterase,Urine Negative (Negative); Nitrite,Urine Negative (Negative); Protein,Urine Negative (Negative); Specific Gravity,Urine 1.041 (1.001-1.035); Urobilinogen,Urine <2.0 mg/dL (<2.0)
[2021-02-03] MEDS ORDERED: NALOXONE 0.4 MG/ML 1 ML VIAL IV PRN (09:04)
[2021-02-03] MEDS ORDERED: HYDROmorphone 1 MG/ML 1 ML SYRINGE IVP PRN (09:04)
[2021-02-03] MEDS ORDERED: ONDANSETRON 4 MG/2 ML VIAL IVP PRN (09:04)
[2021-02-03] MEDS: SODIUM CHLORIDE 0.9% 1,000 ML IV SCH ×2 (09:34→17:21)
[2021-02-03] MEDS: HYDROmorphone 0.5 MG/0.5 ML SYRINGE IVP PRN ×2 (13:35→20:43)
[2021-02-03] MEDS ORDERED: ACETAMINOPHEN TAB 325 MG TAB PO PRN (13:53)
[2021-02-03] MEDS: ENOXAPARIN 30 MG/0.3 ML SYRINGE SQ SCH (14:29)
[2021-02-03] MEDS ORDERED: LIDOCAINE 1% (10MG/ML) FOR IV START INTRADERMA PRN (15:17)
[2021-02-03] MEDS ORDERED: MIDAZOLAM 2 MG/2 ML VIAL IV PRN (15:17)
[2021-02-03] MEDS ORDERED: ONDANSETRON 4 MG/2 ML VIAL IVP ONE (15:17)
[2021-02-03] MEDS ORDERED: DEXAMETHASONE SOD PHOSPHATE 4 MG/ML 1 ML VIAL IV ONE (15:17)
[2021-02-03] MEDS: PIPERACILLIN-TAZOBACTAM 3.375 GM in SODIUM CHLORIDE 0.9% 100 ML IVPB SCH (15:31)
[2021-02-03] MEDS: KETOROLAC 15 MG/ML 1 ML VIAL IVP SCH (18:11)
[2021-02-03] MEDS: ACETAMINOPHEN IV (For NPO) 1,000 MG in EMPTY BAG 1 BAG IVPB SCH (18:59)
[2021-02-03] MEDS ORDERED: VANCOMYCIN IV PER PHARMACY 1 EACH MISC MISCELLANE PRN (20:27)
[2021-02-03] MEDS ORDERED: VANCOMYCIN 1,750 MG in SODIUM CHLORIDE 0.9% 500 ML 500 ML IVPB ONE (20:45)
--- NOTE | 2021-02-03 20:45 | P.GSHP ---
History of Present Illness H&P Date: 02/03/21 CHIEF COMPLAINT: Appendicitis HISTORY OF PRESENT ILLNESS: The patient is a 35 year old male who comes in with increased right lower quadrant abdominal pain that started from yesterday. His is at bedside and provides additional history including seven days ago, he had a head cold versus sinus infection that did not resolve. Yesterday he developed crampy periumbilical abdominal pain that localized to the right lower quadrant. He reports decreased appetite from yesterday that progressed today. He reports thirst. His pain is moderate but tolerable. No active emesis. Additional diagnostic studies demonstrated appendicitis, hence his admission. PAST MEDICAL HISTORY: See list and reviewed PAST SURGICAL HISTORY: See list and reviewed MEDICATIONS: See list and reviewed ALLERGIES: See list and reviewed SOCIAL HISTORY: See list and reviewed FAMILY HISTORY: See list and reviewed REVIEW OF ORGAN SYSTEMS: CONSTITUTIONAL: No fevers or chills. EYES: Denies any trouble with vision. No glasses. HEENT: No difficulties with hearing. No nosebleeds. No difficulty swallowing. RESPIRATORY: Has asthma. CARDIOVASCULAR: ECHO done 3 years ago for EKG changes. GASTROINTESTINAL: Denies fatty food intolerance. Denies change in bowel habits and gas bloat. GENITOURINARY: Denies any blood in urine or increased urinary frequency. NEUROLOGICAL: Denies any numbness or tingling along the distal extremities. No seizure disorders or headaches. MUSCULOSKELETAL: Denies any back pain, stiffness or joint arthritis. SKIN: No current skin cancer. No rash. PSYCHIATRIC: Denies current depression or suicidal thoughts. ENDOCRINE: Denies current thyroid disorders. Denies any blood sugar glucose intolerance. HEME/LYMPHATIC: Past hospital admission for sepsis and diarrhea 3 years ago. ALLERGY/IMMUNOLOGY: No immunoglobulin therapy. No immune deficiencies. BREAST: Denies current breast lumps, pain or nipple discharge. PHYSICAL EXAM: VITALS: Reviewed CONSTITUTIONAL: Well developed and in no acute distress. EYES: Conjuctivae without sclera icterus. Extraocular movements grossly intact. HEAD, EARS, NOSE, THROAT: Moist buccal mucosa. Head is atraumatic, normocephalic. Hears conversational speech. No nasal drainage. NECK: Supple. No JV distention. No thyroidomegaly. RESPIRATORY: Non-labored respirations and equal bilateral excursions. No gross wheezes. CARDIOVASCULAR: Regular rate and rhythm. Extremities without moderate edema. Palpable 2+ radial pulses. ABDOMEN: Tender right lower quadrant abdominal pain. No peritonitis. LYMPH: No gross neck lymphadenopathy. MUSCULOSKELETAL: Nail and fingers with good capillary refill. SKIN: Warm and well perfused with good skin turgor. NEUROLOGIC: Cranial nerves II through XII grossly intact. No focal or lateralizing signs. PSYCH: Appropriate affect. Alert and oriented to person, place and time. Displays appropriate insight. CLINCAL LABS: Reviewed. WBC on admission over 16,000. IMAGING: Independently reviewed CT of the abdomen and pelvis with inflammatory changes along the right lower quadrant. Appendix is dilated with appendicolith at the base of the appendix. This is my independent interpretation. RADIOLOGY: Report reviewed of the CT of the abdomen and pelvis with fluid around the appendix. Appendix dilated to 1.2 cm. RECORDS: previous old records reviewed with ECHO 2018 normal ejection fraction 60 to 65%. ASSESSMENT: 1. Acute appendicitis 2. Leukocytosis PLAN: 1. Antibiotics Zosyn prescribed. 2. DVT prophylaxis 3. Inpatient admission advised. 4. Robotic appendectomy reviewed. 5. Clear liquid diet with NPO after midnight. 6. All question addressed. Past Medical History Past Medical History: Asthma History of Any Multi-Drug Resistant Organisms: None Reported Past Surgical History: No Surgical Hx Reported Past Anesthesia/Blood Transfusion Reactions: No Reported Reaction Additional Past Anesthesia/Blood Transfusion Reaction / Comment(s): no history of blood transfusions Past Psychological History: No Psychological Hx Reported Smoking Status: Never smoker Past Alcohol Use History: None Reported Past Drug Use History: Marijuana - Past Family History Father Family Medical History: Cancer, Hypertension Medications and Allergies Home Medications Medication Instructions Recorded Confirmed Type No Known Home Medications 02/03/21 02/03/21 History Allergies Allergy/AdvReac Type Severity Reaction Status Date / Time No Known Allergies Allergy Verified 02/03/21 09:13 Surgical - Exam Vital Signs Temp Pulse Resp BP Pulse Ox 97.6 F 95 18 109/79 96 02/03/21 06:26 02/03/21 06:26 02/03/21 06:26 02/03/21 06:26 02/03/21 06:26 Results - Labs 02/03/21 07:15 02/03/21 07:15 Abnormal Lab Results - Last 24 Hours (Table) 02/03/21 02/03/21 02/03/21 Range/Units 07:15 07:15 07:15 WBC 16.1 H (3.8-10.6) k/uL Neutrophils # 13.4 H (1.3-7.7) k/uL Sodium 136 L (137-145) mmol/L Glucose 127 H (74-99) mg/dL Ur Specific [place] 1.041 H (1.001-1.035) Microbiology - Last 24 Hours (Table) 02/03/21 06:54 Blood Culture Gram Stain - Preliminary Blood 02/03/21 06:54 Blood Culture - Final Blood Diabetes panel 02/03/21 Range/Units 07:15 Sodium 136 L (137-145) mmol/L Potassium 3.8 (3.5-5.1) mmol/L Chloride 100 (98-107) mmol/L Carbon Dioxide 23 (22-30) mmol/L BUN 10 (9-20) mg/dL Creatinine 0.75 (0.66-1.25) mg/dL Glucose 127 H (74-99) mg/dL Calcium 9.8 (8.4-10.2) mg/dL AST 19 (17-59) U/L ALT 24 (4-49) U/L Alkaline Phosphatase 58 (38-126) U/L Total Protein 7.6 (6.3-8.2) g/dL Albumin 4.4 (3.5-5.0) g/dL Calcium panel 02/03/21 Range/Units 07:15 Calcium 9.8 (8.4-10.2) mg/dL Albumin 4.4 (3.5-5.0) g/dL Pituitary panel 02/03/21 Range/Units 07:15 Sodium 136 L (137-145) mmol/L Potassium 3.8 (3.5-5.1) mmol/L Chloride 100 (98-107) mmol/L Carbon Dioxide 23 (22-30) mmol/L BUN 10 (9-20) mg/dL Creatinine 0.75 (0.66-1.25) mg/dL Glucose 127 H (74-99) mg/dL Calcium 9.8 (8.4-10.2) mg/dL Adrenal panel 02/03/21 Range/Units 07:15 Sodium 136 L (137-145) mmol/L Potassium 3.8 (3.5-5.1) mmol/L Chloride 100 (98-107) mmol/L Carbon Dioxide 23 (22-30) mmol/L BUN 10 (9-20) mg/dL Creatinine 0.75 (0.66-1.25) mg/dL Glucose 127 H (74-99) mg/dL Calcium 9.8 (8.4-10.2) mg/dL Total Bilirubin 1.0 (0.2-1.3) mg/dL AST 19 (17-59) U/L ALT 24 (4-49) U/L Alkaline Phosphatase 58 (38-126) U/L Total Protein 7.6 (6.3-8.2) g/dL Albumin 4.4 (3.5-5.0) g/dL Assessment and Plan (1) Acute appendicitis Current Visit: Yes Status: Acute Code(s): K35.80 - UNSPECIFIED ACUTE APPENDICITIS SNOMED Code(s): 29485982 (2) Asthma Current Visit: Yes Status: Acute Code(s): J45.909 - UNSPECIFIED ASTHMA, UNCOMPLICATED SNOMED Code(s): 650616639 (3) Leukocytosis Current Visit: Yes Status: Acute Code(s): D72.829 - ELEVATED WHITE BLOOD CELL COUNT, UNSPECIFIED SNOMED Code(s): 801200095
[2021-02-04] MEDS: KETOROLAC 15 MG/ML 1 ML VIAL IVP SCH ×4 (00:28→18:23)
[2021-02-04] MEDS: ACETAMINOPHEN IV (For NPO) 1,000 MG in EMPTY BAG 1 BAG IVPB SCH ×3 (00:29→16:56)
[2021-02-04] MEDS: PIPERACILLIN-TAZOBACTAM 3.375 GM in SODIUM CHLORIDE 0.9% 100 ML IVPB SCH ×3 (00:29→11:22)
[2021-02-04] MEDS ORDERED: VANCOMYCIN 1,750 MG in SODIUM CHLORIDE 0.9% 500 ML 500 ML IVPB SCH (04:00)
[2021-02-04] MEDS: SODIUM CHLORIDE 0.9% 1,000 ML IV SCH ×4 (04:45→23:51)
[2021-02-04 06:12] LABS: Basophils % (A) 0 %; Eosinophils % (A) 0 %; HCT 42.7 % (39.0-53.0); HGB 13.7 gm/dL (13.0-17.5); Lymphocytes # (A) 1.3 k/uL (1.0-4.8); Lymphocytes % (A) 5 %; MCH 28.1 pg (25.0-35.0); MCHC 32.1 g/dL (31.0-37.0); MCV 87.7 fL (80.0-100.0); Mean Platelet Volume 7.9; Monocytes # (A) 0.8 k/uL (0-1.0); Monocytes % (A) 3 %; Neutrophils # (A) 22.9 k/uL (1.3-7.7); Neutrophils % (A) 91 %; Platelet Count 198 k/uL (150-450); RBC 4.87 m/uL (4.30-5.90); RDW 12.8 % (11.5-15.5); WBC 25.1 k/uL (3.8-10.6)
[2021-02-04] MEDS ORDERED: metroNIDAZOLE-NS PMX 500 MG in SALINE 100 100ML.BAG IVPB PRN (07:00)
[2021-02-04] MEDS ORDERED: HYDROmorphone 0.5 MG/0.5 ML SYRINGE IVP PRN (07:00)
[2021-02-04] MEDS: HYDROmorphone 0.5 MG/0.5 ML SYRINGE IVP PRN ×2 (08:30→20:15)
[2021-02-04] MEDS ORDERED: IV FLUID CONTINUATION 1,000 ML IV ONE (10:17)
[2021-02-04] MEDS ORDERED: fentaNYL (PF) 50 MCG/ML 2 ML AMP IVP ONE (10:46)
--- NOTE | 2021-02-04 11:03 | P.PN ---
Subjective Progress Note Date: 02/04/21 CHIEF COMPLAINT: Appendicitis HISTORY OF PRESENT ILLNESS: The patient is a 35 year old male admitted with appendicitis. Yesterday evening he developed high temperatures of 102. Denies any increased abdominal pain. He reports thirst. I was notified by the nurse last night that he was growing gram-positive cocci in blood cultures later amended. He was placed on vancomycin based on initial blood cultures. REVIEW OF ORGAN SYSTEMS: Recent fevers over 102.0. No nausea. No chest pain. PHYSICAL EXAM: VITALS: Reviewed CONSTITUTIONAL: Well developed and in no acute distress. EYES: Conjuctivae without sclera icterus. Extraocular movements grossly intact. HEAD, EARS, NOSE, THROAT: Moist buccal mucosa. Head is atraumatic, normocephalic. Hears conversational speech. No nasal drainage. RESPIRATORY: Non-labored respirations and equal bilateral excursions. No gross wheezes. CARDIOVASCULAR: Palpable 2+ radial pulses. ABDOMEN: Tender right lower quadrant abdominal pain. MUSCULOSKELETAL: No clubbing cyanosis or edema SKIN: Warm and well perfused with good skin turgor. NEUROLOGIC: Cranial nerves II through XII grossly intact. No focal or lateralizing signs. PSYCH: Appropriate affect. Alert and oriented to person, place and time. Displays appropriate insight. CLINCAL LABS: Reviewed. WBC on admission over 16,000, now over 25,000 MICRO: E.coli positive blood culture ASSESSMENT: 1. Acute appendicitis 2. Leukocytosis 3. Sepsis with positive E. coli blood culture PLAN: 1. Antibiotic suggested to include vancomycin due to blood culture results. 2. Consultation to infectious disease for positive blood cultures and sepsis. 3. Benefits and risks of robotic cholecystectomy described in detail including placement of ANDERS drain and full inpatient admission. 4. All questions addressed. Objective - Vital Signs Vital signs: Vital Signs Temp 98.0 F 02/04/21 10:24 Pulse 101 H 02/04/21 10:24 Resp 16 02/04/21 10:24 BP 142/79 02/04/21 10:24 Pulse Ox 97 02/04/21 10:24 Intake & Output 02/03/21 02/04/21 02/04/21 18:59 06:59 18:59 Weight 115.666 kg Other: Voiding Method Toilet Urinal # Voids 1 1 - Labs CBC & Chem 7: 02/04/21 05:29 02/03/21 07:15 Labs: Abnormal Lab Results - Last 24 Hours (Table) 02/04/21 Range/Units 05:29 WBC 25.1 H (3.8-10.6) k/uL Neutrophils # 22.9 H (1.3-7.7) k/uL Microbiology - Last 24 Hours (Table) 02/03/21 07:10 Blood Culture - Preliminary Blood No Growth after 24 hours 02/03/21 06:54 Blood Culture - Final Blood 02/03/21 06:54 Blood Culture Gram Stain - Preliminary Blood Blood Culture - Preliminary Escherichia coli Assessment and Plan (1) Acute appendicitis Current Visit: Yes Status: Acute Code(s): K35.80 - UNSPECIFIED ACUTE APPENDICITIS SNOMED Code(s): 16122479 (2) Asthma Current Visit: Yes Status: Acute Code(s): J45.909 - UNSPECIFIED ASTHMA, UNCOMPLICATED SNOMED Code(s): 710923242 (3) Leukocytosis Current Visit: Yes Status: Acute Code(s): D72.829 - ELEVATED WHITE BLOOD CELL COUNT, UNSPECIFIED SNOMED Code(s): 454927406
[2021-02-04] MEDS ORDERED: GLYCOPYRROLATE 0.2 MG/ML 2 ML VIAL ONE (11:17)
[2021-02-04] MEDS ORDERED: PROPOFOL 10 MG/ML 20 ML VIAL IV ONE (11:17)
[2021-02-04] MEDS ORDERED: ROCURONIUM 10 MG/ML (5 ML VIAL) IV ONE (11:17)
[2021-02-04] MEDS ORDERED: MIDAZOLAM 2 MG/2 ML VIAL ONE (11:17)
[2021-02-04] MEDS ORDERED: KETOROLAC 15 MG/ML 1 ML VIAL ONE (11:17)
[2021-02-04] MEDS ORDERED: HYDROmorphone (PF) 1 MG/ML ONE (11:17)
[2021-02-04] MEDS ORDERED: diphenhydrAMINE 50 MG/ML 1 ML VIAL ONE (11:17)
[2021-02-04] MEDS ORDERED: LIDOCAINE 1% INJ 10MG/ML (20 ML MDV) ONE (11:17)
[2021-02-04] MEDS ORDERED: NEOSTIGMINE 1 MG/ML 10 ML VIAL ONE (11:17)
[2021-02-04] MEDS ORDERED: fentaNYL (PF) 50 MCG/ML 2 ML AMP ONE (11:17)
[2021-02-04] MEDS ORDERED: SUCCINYLCHOLINE CHLORIDE 100 MG/5 ML SYR IV ONE (11:17)
[2021-02-04] MEDS ORDERED: BUPIVACAIN-EPI 0.25%-1:200,000 30 ML VIAL SQ ONE (11:35)
[2021-02-04] MEDS ORDERED: LACTATED RINGERS 1,000 ML IV ONE (13:26)
[2021-02-04] MEDS ORDERED: METOCLOPRAMIDE 5 MG/ML 2 ML VIAL IVP PRN (13:34)
--- NOTE | 2021-02-04 13:45 | P.OP ---
Date of Procedure: 02/04/21 Description of Procedure: SURGEON: KECIA SR MD Preoperative Diagnosis: 1. Acute appendicitis 2. Leukocytosis 3. Sepsis with positive E. coli blood culture 4. Obesity due to excess calories, BMI 34.6 Postoperative Diagnosis: 1. Acute appendicitis with perforation, localized peritonitis and abscess 2. Leukocytosis 3. Sepsis with positive E. coli blood culture 4. Obesity due to excess calories, BMI 34.6 Procedure(s) Performed: 1. Robotic-assisted daVinci Xi laparoscopic lysis of adhesions over 1 hr 2. Robotic-assisted daVinci Xi laparoscopic appendectomy with drainage of periappendiceal abscess 3. Placement of ANDERS drain #19 right lower quadrant/pelvis 4. Peritoneal lavage 1000 mL normal saline Anesthesia: GETA, local Estimated Blood Loss (ml): 10 Pathology: other (appendix, aerobic and anerobic culture of peritoneal fluid from appendiceal abscess) Condition: stable Disposition: floor Operative Findings: 1. Localized abscess 10-mL drained right lower quadrant 2. Gangrenous ruptured purulent appendicitis at tip of appendix 3. Abdomen irrigated with 1000-mL normal saline 4. ANDERS drain placed at right lower quadrant of abscess pocket drained 5. Appendix resected at base 6. Staple line hemostatic INDICATIONS: The patient is a 35-year-old male who presents with acute appendicitis including fevers and peritonitis consistent with sepsis. Surgical intervention was described in detail. Patient requested robotic-assisted technique. Benefits and risks, including infection, open surgery, and possibility for additional surgery was discussed at length. Informed consent was obtained. All questions of the patient and family were answered. DESCRIPTION: The patient was transferred to the operating room and placed in supine position. The patient had previously voided. The abdomen was then prepped and draped in standard sterile fashion as Ioban was placed along the abdomen to minimize any contamination of skin floor. After a timeout protocol was performed, attention was then brought to the left upper quadrant whereby a 0 degree 5 mm laparoscopic trocar entry was performed. The abdominal cavity was entered and insufflated to 15 mmHg pressure, which was tolerated well. Diagnostic laparoscopy demonstrated no injury to bowel, viscera or mesentery. Adhesions were confirmed of the right lower quadrant of omentum, small bowel to the abdominal wall. Localized abscess was found. Next a robotic 12-mm trocar was placed along the left upper quadrant after e xchanging the 5 mm trocar. A 8 mm port was placed along the left lower quadrant and another 8-mm port left lateral abdominal wall. Ports were placed 10 cm apart from each other including 15-20 cm away from the target anatomy of the right pelvis. The patient was then placed in Trendelenburg position, at least 14 and right side up at least 7. The robotic da Jorge Alberto XI system was primed and docked from the left side of the patient. Using atraumatic graspers and vessel sealer, the robotic system was docked and primed as described. Instruments were interchanged by the commercial lending assistant including graspers, robotic stapler and vessel sealer. Next, attention was brought to identify the cecum. A systematic view within the abdominal cavity was started with the small bowel which was unremarkable for features of Crohn disease. The base of the cecum was without inflammation. The appendix was ruptured at the tip with moderate dissection performed. The abscess of 10-mL was drained from the abdomen. Extensive lysis of adhesions over 1 hour was used to dissect the appendix from surrounding tissues including along the base of the cecum. Blue 45 mm robotic staple loads were fired along the base of the appendix. The staple line was hemostatic and viable. Hemostasis was checked prior to undocking the robot. The abdomen was irrigated with 2000 mL normal saline to the aspirant was clear. At the right pelvis, a suspended round ligament creating an internal hernia was identified and divided. The robot was undocked. I re-scrubbed into the case. A round #19 drain was placed via the left upper quadrant port and positioned at the right lower quadrant and pelvis. A drain stitch 2-0 nylon was placed with the bulb attached separately. The specimen was removed from the abdominal cavity with an Endo Catch bag through the 12 mm trocar at the left upper quadrant. All instruments and pneumoperitoneum were evacuated from the abdominal cavity. Local anesthetic was infiltrated to all wounds for postop analgesia. All incisions were also cleansed with diluted hydrogen peroxide. An Optifoam surgical dressing was placed over drain site. The patient had tolerated the procedure well. The patient was extubated successfully. The patient was transferred to the postanesthesia care unit in stable condition.
[2021-02-04] MEDS: ENOXAPARIN 30 MG/0.3 ML SYRINGE SQ SCH (16:37)
[2021-02-04] MEDS: LACTATED RINGERS 1,000 ML IV SCH ×2 (16:53→16:56)
[2021-02-04] MEDS: ACETAMINOPHEN TAB 500 MG TAB PO SCH (18:22)
[2021-02-04] MEDS: FAMOTIDINE 20 MG TAB PO SCH (20:15)
--- NOTE | 2021-02-04 23:24 | P.CONS ---
History of Present Illness - Reason for Consult Consult date: 02/04/21 Gram negative bacteremia Requesting physician: Linn De La Torre - Chief Complaint abd pain x 2 days - History of Present Illness History of present illness : Patient is a 35-year-old male presenting to the ER yesterday morning for evaluation of abdominal pain patient pain has been right lower quadrant that started the day before presentation to the hospital patient did have some nausea and vomiting associated with it. She said the pain to be more of a sharp in nature intensity is almost 7-8 out of 10 and no radiation patient has tried different modalities without any improvement he denies any fever on presentation to the hospital patient was initially afebrile subsequent spike a fever of 101.8 F patient was tachycardic and did have white count of 16,000 her repeat is 25.1, did have normal kidney function electrolyte has been normal with a low normal urine was negative patient did have a CT of abdominal pelvis with evidence of acute appendicitis without definite perforation patient did have blood cultures drawn which came back positive for gram-negative bacilli that has prompted this infectious disease consultation in this patient subsequently taken to the OR and was noticed to have acute appendicitis with perforation status post laparoscopic appendectomy infectious disease was consulted for further management of antibiotic therapy Review of system: CONSTITUTIONAL: Positive for weakness along with the fever. EYES: No complaint. ENT: No complaint. RESPIRATORY: No complaint. CARDIOVASCULAR: No complaint. GENITOURINARY: No complaint. GASTROINTESTINAL: As per history of present illness. MUSCULOSKELETAL: No complaint. INTEGUMENTARY: No complaint. PSYCHOLOGIC: No complaint. ENDOCRINE: No complaint. NEUROLOGIC: No complaint. Past medical history : Reviewed, documented below Past surgical history : Reviewed, documented below Social history: Reviewed, documented below Medications: Reviewed, as documented below EXAMINATION: Vital sigans= Reviewed and documented below GENERAL DESCRIPTION: Middle-aged male lying in bed, no distress. No tachypnea or accessory muscle of respiration use. HEENT: Shows Pallor , no scleral icterus. Oral mucous membrane is dry. NECK: Trachea central, no thyromegaly. LUNGS: Unlabored breathing. Clear to auscultation anteriorly. No wheeze or crackle. HEART: S1, S2, regular rate and rhythm. ABDOMEN: Soft, right lower quadrant tenderness , no guarding or rigidity EXTREMITIES: No edema of feet. SKIN: No rash, no masses palpable. NEUROLOGICAL: The patient is awake, alert, oriented x3, mood and affect normal. LABS AND RADIOLOGY: Reviewed results see below Assessment : Patient presented to hospital with sepsis in this we did have fever elevated white count tachycardia meeting criteria for SIRS sources acute appendicitis with perforation and localized abscess and evidence of E. coli ba cteremia likely secondary to his perforated appendicitis and abscess in this patient who has not been on antibiotic in the recent past could be sensitive pathogen Plan: 1-Zosyn 3.375 g every 8 hours 2-discontinue vancomycin 3-gentle IV fluid We will follow on clinical condition and cultures to further adjust medication if needed Thank you for this consultation we will follow the patient along with you Past Medical History Past Medical History: Asthma History of Any Multi-Drug Resistant Organisms: None Reported Past Surgical History: No Surgical Hx Reported Past Anesthesia/Blood Transfusion Reactions: No Reported Reaction Additional Past Anesthesia/Blood Transfusion Reaction / Comm: no history of blood transfusions Past Psychological History: No Psychological Hx Reported Smoking Status: Never smoker Past Alcohol Use History: None Reported Past Drug Use History: Marijuana - Past Family History Father Family Medical History: Cancer, Hypertension Medications and Allergies Home Medications Medication Instructions Recorded Confirmed Type No Known Home Medications 02/03/21 02/04/21 History Allergies Allergy/AdvReac Type Severity Reaction Status Date / Time No Known Allergies Allergy Verified 02/04/21 10:22 Physical Exam Vitals: Vital Signs Temp Pulse Pulse Pulse Resp BP BP 02/04/21 10:24 98.0 F 101 H 16 02/04/21 07:00 98.9 F 93 19 02/04/21 01:55 99.6 F 100 18 126/76 02/03/21 21:38 99.3 F 02/03/21 18:53 102.2 F H 107 H 16 101/62 02/03/21 17:50 102.0 F H 118 H 16 108/66 02/03/21 17:26 101.8 F H 02/03/21 15:00 100.7 F H 105 H 18 126/83 02/03/21 14:20 100.8 F H 02/03/21 13:42 101.8 F H 103 H 16 02/03/21 13:09 97.9 F 72 16 134/78 BP Pulse Ox 02/04/21 10:24 142/79 97 02/04/21 07:00 118/77 93 L 02/04/21 01:55 95 02/03/21 21:38 02/03/21 18:53 97 02/03/21 17:50 96 02/03/21 17:26 02/03/21 15:00 97 02/03/21 14:20 02/03/21 13:42 137/80 98 02/03/21 13:09 98 Intake and Output 02/03/21 02/04/21 02/04/21 22:59 06:59 14:59 Other: Voiding Method Toilet Urinal # Voids 1 1 Results CBC & Chem 7: 02/04/21 05:29 02/03/21 07:15 Labs: Abnormal Lab Results - Last 24 Hours (Table) 02/04/21 Range/Units 05:29 WBC 25.1 H (3.8-10.6) k/uL Neutrophils # 22.9 H (1.3-7.7) k/uL Microbiology - Last 24 Hours (Table) 02/03/21 07:10 Blood Culture - Preliminary Blood No Growth after 24 hours 02/03/21 06:54 Blood Culture - Final Blood 02/03/21 06:54 Blood Culture Gram Stain - Preliminary Blood Blood Culture - Preliminary Escherichia coli
[2021-02-05] MEDS: KETOROLAC 15 MG/ML 1 ML VIAL IVP SCH ×4 (00:39→18:01)
[2021-02-05] MEDS: PIPERACILLIN-TAZOBACTAM 3.375 GM in SODIUM CHLORIDE 0.9% 100 ML IVPB SCH ×3 (00:39→16:44)
[2021-02-05] MEDS: ACETAMINOPHEN TAB 500 MG TAB PO SCH ×4 (00:39→18:39)
[2021-02-05 05:22] LABS: Basophils % (A) 0 %; Eosinophils % (A) 0 %; HCT 36.2 % (39.0-53.0); Lymphocytes # (A) 0.6 k/uL (1.0-4.8); Lymphocytes % (A) 3 %; MCH 28.4 pg (25.0-35.0); MCHC 33.2 g/dL (31.0-37.0); MCV 85.5 fL (80.0-100.0); Mean Platelet Volume 7.9; Monocytes # (A) 0.7 k/uL (0-1.0); Monocytes % (A) 4 %; Neutrophils % (A) 92 %; Platelet Count 185 k/uL (150-450); RBC 4.23 m/uL (4.30-5.90); RDW 13.2 % (11.5-15.5); WBC 18.4 k/uL (3.8-10.6)
[2021-02-05] MEDS: FAMOTIDINE 20 MG TAB PO SCH ×2 (08:29→20:43)
[2021-02-05] MEDS: SODIUM CHLORIDE 0.9% 1,000 ML IV SCH ×2 (08:32→16:44)
[2021-02-05] MEDS ORDERED: VANCOMYCIN TROUGH DUE 1 EACH MISC MISCELLANE ONE (11:00)
[2021-02-05] MEDS: ENOXAPARIN 30 MG/0.3 ML SYRINGE SQ SCH (12:10)
[2021-02-05] MEDS: HYDROmorphone 0.5 MG/0.5 ML SYRINGE IVP PRN (15:00)
[2021-02-05 15:22] LABS: Glucose,Whole Blood 113 mg/dL (75-99)
--- NOTE | 2021-02-05 16:35 | PN ---
PROGRESS NOTE DATE OF SERVICE: 02/05/2021 REASON FOR FOLLOWUP: E coli bacteremia secondary to acute appendicitis with perforation and abscess. INTERVAL HISTORY: The patient is afebrile. The patient is breathing comfortably. The patient's abdominal pain has decreased in intensity. Denies any chest pain. No shortness of breath or cough. No nausea, no vomiting. PHYSICAL EXAMINATION: Blood pressure 128/78 with a pulse of 80, temperature 98.3. He is 96% on room air. General description is a middle-aged male lying in bed in no distress. Respiratory system: Unlabored breathing, clear to auscultation anteriorly. Heart S1, S2. Regular rate and rhythm. Abdomen soft, mildly tender, no guarding or rigidity. Extremities: No edema of the feet. LABS: Hemoglobin is 12.1, white count of 18.4. DIAGNOSTIC IMPRESSION AND PLAN: Patient with an E coli bacteremia secondary to acute appendicitis, perforation and abscess status post appendectomy and drainage of the abscess. Patient to continue Zosyn. Antibiotic will be adjusted further based on culture report. Continue supportive care. MMODL / IJN: [id number] /
[2021-02-05] MEDS: LACTATED RINGERS 1,000 ML IV SCH (16:44)
[2021-02-05 23:53] VITALS: RESP 16
[2021-02-06] MEDS: SODIUM CHLORIDE 0.9% 1,000 ML IV SCH ×3 (00:41→14:47)
[2021-02-06] MEDS: ACETAMINOPHEN TAB 500 MG TAB PO SCH ×4 (00:41→18:05)
[2021-02-06] MEDS: KETOROLAC 15 MG/ML 1 ML VIAL IVP SCH ×3 (00:42→12:36)
[2021-02-06] MEDS: PIPERACILLIN-TAZOBACTAM 3.375 GM in SODIUM CHLORIDE 0.9% 100 ML IVPB SCH ×2 (00:42→08:06)
[2021-02-06] MEDS: FAMOTIDINE 20 MG TAB PO SCH ×2 (08:06→21:39)
[2021-02-06 08:19] LABS: ALT 22 U/L (4-49); AST 22 U/L (17-59); African American GFR (CKD) >90 (>60 ml/min/1.73 sqM); Albumin/Globulin Ratio 1.1; Alkaline Phosphatase 100 U/L (38-126); Anion Gap 8 mmol/L; Blood Urea Nitrogen 11 mg/dL (9-20); Calcium 8.1 mg/dL (8.4-10.2); Carbon Dioxide 24 mmol/L (22-30); Chloride 106 mmol/L (98-107); Globulin 2.7 g/dL; Glucose 99 mg/dL (74-99); Non-African American GFR(CKD) >90 (>60 ml/min/1.73 sqM); Sodium 138 mmol/L (137-145); Total Bilirubin 0.4 mg/dL (0.2-1.3); Total Protein 5.7 g/dL (6.3-8.2)
[2021-02-06 08:48] LABS: Basophils % (A) 0 %; Eosinophils # (A) 0.1 k/uL (0-0.7); Eosinophils % (A) 1 %; HCT 35.6 % (39.0-53.0); HGB 11.7 gm/dL (13.0-17.5); Lymphocytes # (A) 0.8 k/uL (1.0-4.8); Lymphocytes % (A) 6 %; MCH 28.6 pg (25.0-35.0); MCHC 32.7 g/dL (31.0-37.0); MCV 87.2 fL (80.0-100.0); Mean Platelet Volume 7.7; Monocytes # (A) 0.5 k/uL (0-1.0); Monocytes % (A) 4 %; Neutrophils # (A) 11.5 k/uL (1.3-7.7); Neutrophils % (A) 89 %; Platelet Count 234 k/uL (150-450); RBC 4.08 m/uL (4.30-5.90); RDW 12.9 % (11.5-15.5); WBC 12.9 k/uL (3.8-10.6)
--- NOTE | 2021-02-06 10:15 | P.PN ---
Subjective Progress Note Date: 02/05/21 CHIEF COMPLAINT: Appendicitis HISTORY OF PRESENT ILLNESS: The patient is a 35 year old male status post appendectomy 02/04/2021 with ruptured appendicitis and localized abscess with peritonitis. He reports feeling much better today. His is at bedside. He is tolerating diet. REVIEW OF ORGAN SYSTEMS: Fever curve improved from 102.2 to 100.4 overnight. No chest pain. No shortness of breath. PHYSICAL EXAM: VITALS: Reviewed CONSTITUTIONAL: Well developed and in no acute distress. EYES: Conjuctivae without sclera icterus. Extraocular movements grossly intact. HEAD, EARS, NOSE, THROAT: Moist buccal mucosa. Head is atraumatic, normocephalic. Hears conversational speech. No nasal drainage. RESPIRATORY: Non-labored respirations and equal bilateral excursions. No gross wheezes. CARDIOVASCULAR: Palpable 2+ radial pulses. ABDOMEN: Decreased tenderness right lower quadrant. ANDERS serous. MUSCULOSKELETAL: No clubbing cyanosis or edema SKIN: Warm and well perfused with good skin turgor. NEUROLOGIC: Cranial nerves II through XII grossly intact. No focal or lateralizing signs. PSYCH: Appropriate affect. Alert and oriented to person, place and time. Displays appropriate insight. CLINCAL LABS: Reviewed. WBC on admission over 16,000, now over 25,000, decreased to over 18,000. Hemoglobin down 13.7-12.0, dilutional due to dehydration. MICRO: E.coli positive blood culture ASSESSMENT: 1. Acute appendicitis with rupture and localized abscess with localized peritonitis 2. Leukocytosis 3. Sepsis with positive E. coli blood culture PLAN: 1. Clinically he is doing well. Will continue IV antibiotics. 2. Appreciate infectious disease assessment 3. Continue diet as tolerated 4. Postoperative expectations reviewed including early return to work in 2 weeks, February 22. Additionally, likely discharge home with ANDERS drain reviewed. 5. Inpatient hospitalization advised for sepsis, continued IV antibiotics Objective - Vital Signs Vital signs: Vital Signs Temp 99.2 F 02/06/21 08:15 Pulse 85 02/06/21 08:00 Resp 16 02/06/21 08:00 BP 136/86 02/06/21 07:00 Pulse Ox 95 02/06/21 07:00 Intake & Output 02/05/21 02/06/21 02/06/21 18:59 06:59 18:59 Intake Total 480 300 Output Total 20 Balance 460 300 Intake: Oral 480 300 Output: Drainage 20 Abdomen 20 Other: Voiding Method Toilet Toilet # Voids 1 - Labs CBC & Chem 7: 02/06/21 07:46 02/06/21 07:46 Labs: Abnormal Lab Results - Last 24 Hours (Table) 02/05/21 02/06/21 02/06/21 Range/Units 15:19 07:46 07:46 WBC 12.9 H (3.8-10.6) k/uL RBC 4.08 L (4.30-5.90) m/uL Hgb 11.7 L (13.0-17.5) gm/dL Hct 35.6 L (39.0-53.0) % Neutrophils # 11.5 H (1.3-7.7) k/uL Lymphocytes # 0.8 L (1.0-4.8) k/uL Potassium 3.0 L (3.5-5.1) mmol/L Creatinine 0.65 L (0.66-1.25) mg/dL POC Glucose (mg/dL) 113 H (75-99) mg/dL Calcium 8.1 L (8.4-10.2) mg/dL Total Protein 5.7 L (6.3-8.2) g/dL Albumin 3.0 L (3.5-5.0) g/dL Microbiology - Last 24 Hours (Table) 02/04/21 12:00 Gram Stain - Preliminary Appendix Wound Culture - Preliminary Gram Neg Bacilli 02/03/21 06:54 Blood Culture Gram Stain - Final Blood Blood Culture - Final Escherichia coli 02/03/21 07:10 Blood Culture Gram Stain - Preliminary Blood Assessment and Plan (1) Acute appendicitis Current Visit: Yes Status: Acute Code(s): K35.80 - UNSPECIFIED ACUTE APPENDICITIS SNOMED Code(s): 87652805 (2) Asthma Current Visit: Yes Status: Acute Code(s): J45.909 - UNSPECIFIED ASTHMA, UNCOMPLICATED SNOMED Code(s): 306830987 (3) Leukocytosis Current Visit: Yes Status: Acute Code(s): D72.829 - ELEVATED WHITE BLOOD CELL COUNT, UNSPECIFIED SNOMED Code(s): 851053758 (4) E. coli bacteremia Current Visit: Yes Status: Acute Code(s): R78.81 - BACTEREMIA; B96.20 - UNSP ESCHERICHIA COLI THE CAUSE OF DISEASES [facility] SNOMED Code(s): 735557846846 (5) Acute perforated appendicitis Current Visit: Yes Status: Acute Code(s): K35.32 - ACUTE APPENDICITIS WITH PERF AND LOC PERITONITIS, W/O ABSCS SNOMED Code(s): 712909578 (6) Acute appendicitis with localized peritonitis and abscess Current Visit: Yes Status: Acute Code(s): K35.33 - ACUTE APPENDICITIS WITH PERF AND LOC PERITONITIS, WITH ABSCS SNOMED Code(s): 939591048 (7) Acute appendicitis with perforation, localized peritonitis, abscess, and gangrene Current Visit: Yes Status: Acute Code(s): K35.33 - ACUTE APPENDICITIS WITH PERF AND LOC PERITONITIS, WITH ABSCS SNOMED Code(s): 713070438 (8) Sepsis Current Visit: No Status: Acute Code(s): A41.9 - SEPSIS, UNSPECIFIED ORGANISM SNOMED Code(s): 89200909
[2021-02-06] MEDS: ENOXAPARIN 30 MG/0.3 ML SYRINGE SQ SCH (12:36)
--- NOTE | 2021-02-06 14:25 | P.PN ---
Subjective Progress Note Date: 02/06/21 CHIEF COMPLAINT: Appendicitis HISTORY OF PRESENT ILLNESS: The patient is a 35 year old male status post appendectomy 02/04/2021 with ruptured appendicitis and localized abscess with peritonitis. He is tolerating regular diet. He is passing flatus. Family is at bedside. He is comfortable. REVIEW OF ORGAN SYSTEMS: No fevers or chills. PHYSICAL EXAM: VITALS: Reviewed CONSTITUTIONAL: Well developed and in no acute distress. EYES: Conjuctivae without sclera icterus. Extraocular movements grossly intact. HEAD, EARS, NOSE, THROAT: Moist buccal mucosa. Head is atraumatic, normocephalic. Hears conversational speech. No nasal drainage. RESPIRATORY: Non-labored respirations and equal bilateral excursions. No gross wheezes. CARDIOVASCULAR: Palpable 2+ radial pulses. ABDOMEN: Decreased tenderness right lower quadrant. ANDERS serous. MUSCULOSKELETAL: No clubbing cyanosis or edema SKIN: Warm and well perfused with good skin turgor. NEUROLOGIC: Cranial nerves II through XII grossly intact. No focal or lateralizing signs. PSYCH: Appropriate affect. Alert and oriented to person, place and time. Displays appropriate insight. CLINCAL LABS: Reviewed. WBC trending from 25,000 down to over 12,000 MICRO: Wound gram-negative bacilli. E. coli sensitive to all antibiotics from blood cultures ASSESSMENT: 1. Acute appendicitis with rupture and localized abscess with localized peritonitis 2. Leukocytosis 3. Sepsis with positive E. coli blood culture PLAN: 1. Continue ANDERS drain 2. Continue IV antibiotics 3. Discharge pending resolution of sepsis, leukocytosis. Objective - Vital Signs Vital signs: Vital Signs Temp 99.2 F 02/06/21 08:15 Pulse 85 02/06/21 08:00 Resp 16 02/06/21 08:00 BP 136/86 02/06/21 07:00 Pulse Ox 95 02/06/21 07:00 Intake & Output 02/05/21 02/06/21 02/06/21 18:59 06:59 18:59 Intake Total 480 300 Output Total 20 Balance 460 300 Intake: Oral 480 300 Output: Drainage 20 Abdomen 20 Other: Voiding Method Toilet Toilet # Voids 1 - Labs CBC & Chem 7: 02/06/21 07:46 02/06/21 07:46 Labs: Abnormal Lab Results - Last 24 Hours (Table) 02/05/21 02/06/21 02/06/21 Range/Units 15:19 07:46 07:46 WBC 12.9 H (3.8-10.6) k/uL RBC 4.08 L (4.30-5.90) m/uL Hgb 11.7 L (13.0-17.5) gm/dL Hct 35.6 L (39.0-53.0) % Neutrophils # 11.5 H (1.3-7.7) k/uL Lymphocytes # 0.8 L (1.0-4.8) k/uL Potassium 3.0 L (3.5-5.1) mmol/L Creatinine 0.65 L (0.66-1.25) mg/dL POC Glucose (mg/dL) 113 H (75-99) mg/dL Calcium 8.1 L (8.4-10.2) mg/dL Total Protein 5.7 L (6.3-8.2) g/dL Albumin 3.0 L (3.5-5.0) g/dL Microbiology - Last 24 Hours (Table) 02/04/21 12:00 Gram Stain - Preliminary Appendix Wound Culture - Preliminary Gram Neg Bacilli 02/03/21 06:54 Blood Culture Gram Stain - Final Blood Blood Culture - Final Escherichia coli 02/03/21 07:10 Blood Culture Gram Stain - Preliminary Blood Assessment and Plan (1) Acute appendicitis Current Visit: Yes Status: Acute Code(s): K35.80 - UNSPECIFIED ACUTE A PPENDICITIS SNOMED Code(s): 58378923 (2) Asthma Current Visit: Yes Status: Acute Code(s): J45.909 - UNSPECIFIED ASTHMA, UNCOMPLICATED SNOMED Code(s): 398567933 (3) Leukocytosis Current Visit: Yes Status: Acute Code(s): D72.829 - ELEVATED WHITE BLOOD CE LL COUNT, UNSPECIFIED SNOMED Code(s): 822569027 (4) E. coli bacteremia Current Visit: Yes Status: Acute Code(s): R78.81 - BACTEREMIA; B96.20 - UNSP ESCHERICHIA COLI THE CAUSE OF DISEASES CLASSD [facility] SNOMED Code(s): 199377883475 (5) Acute perforated appendicitis Current Visit: Yes Status: Acute Code(s): K35.32 - ACUTE APPENDICITIS WITH PERF AND LOC PERITONITIS, W/O ABSCS SNOMED Code(s): 049047919 (6) Acute appendicitis with localized peritonitis and abscess Current Visit: Yes Status: Acute Code(s): K35.33 - ACUTE APPENDICITIS WITH PERF AND LOC PERITONITIS, WITH ABSCS SNOMED Code(s): 627689390 (7) Acute appendicitis with perforation, localized peritonitis, abscess, and ga ngrene Current Visit: Yes Status: Acute Code(s): K35.33 - ACUTE APPENDICITIS WITH PERF AND LOC PERITONITIS, WITH ABSCS SNOMED Code(s): 348027274 (8) Sepsis Current Visit: No Status: Acute Code(s): A41.9 - SEPSIS, UNSPECIFIED ORGANISM SNOMED Code(s): 34734550
[2021-02-06] MEDS: LACTATED RINGERS 1,000 ML IV SCH (16:40)
[2021-02-06] MEDS: AMPICILLIN-SULBACTAM 3 GM in SODIUM CHLORIDE 0.9% 100 ML IVPB SCH (18:05)
--- NOTE | 2021-02-06 19:17 | PN ---
PROGRESS NOTE DATE OF SERVICE: 02/06/2021 REASON FOR FOLLOWUP: E coli bacteremia secondary to perforated appendicitis and abscess. INTERVAL HISTORY: The patient is afebrile. The patient is feeling better. Breathing comfortably. Abdominal pain is currently a 4. No radiation. No vomiting. Has been passing some gas. No bowel movement. PHYSICAL EXAMINATION: Blood pressure is 142/89 with pulse of 71, temperature 99.1. He is 96% on room air. General description is a middle-aged male lying in bed in no distress. Respiratory system: Unlabored breathing, clear to auscultation anteriorly Heart S1, S2. Regular rate and rhythm. Abdomen soft, mild distention. No guarding or rigidity. LABS: Hemoglobin 11.1, hematocrit 0.9, creatinine 0.65. The abdominal culture with E coli sensitive pathogen. DIAGNOSTIC IMPRESSION AND PLAN: Patient with an E coli bacteremia secondary to Pseudomonas and acute appendicitis with perforation and abscess status post appendectomy and drainage of the abscess. Antibiotic adjusted to Unasyn. Transition to oral antibiotic on discharge. Continue supportive care. MMODL / IJN: [id number] /
[2021-02-07] MEDS: ACETAMINOPHEN TAB 500 MG TAB PO SCH ×3 (00:48→12:19)
[2021-02-07] MEDS: AMPICILLIN-SULBACTAM 3 GM in SODIUM CHLORIDE 0.9% 100 ML IVPB SCH ×3 (00:49→12:19)
[2021-02-07] MEDS: SODIUM CHLORIDE 0.9% 1,000 ML IV SCH ×2 (00:50→06:21)
[2021-02-07 06:43] LABS: Basophils % (A) 0 %; Eosinophils # (A) 0.1 k/uL (0-0.7); Eosinophils % (A) 1 %; HCT 36.2 % (39.0-53.0); HGB 11.9 gm/dL (13.0-17.5); Lymphocytes # (A) 1.3 k/uL (1.0-4.8); Lymphocytes % (A) 14 %; MCH 28.2 pg (25.0-35.0); MCHC 32.7 g/dL (31.0-37.0); MCV 86.2 fL (80.0-100.0); Mean Platelet Volume 7.4; Monocytes # (A) 0.6 k/uL (0-1.0); Monocytes % (A) 7 %; Neutrophils # (A) 7.2 k/uL (1.3-7.7); Neutrophils % (A) 76 %; Platelet Count 276 k/uL (150-450); RDW 12.9 % (11.5-15.5); WBC 9.5 k/uL (3.8-10.6)
[2021-02-07] MEDS: FAMOTIDINE 20 MG TAB PO SCH (07:39)
[2021-02-07 07:43] VITALS: BP 128/86; PULSE 76; TEMP 98.8
[2021-02-07] MEDS ORDERED: ENOXAPARIN 60 MG/0.6 ML SYRINGE SQ SCH (12:00)
--- NOTE | 2021-02-07 13:33 | P.DS ---
Providers Date of admission: 02/04/21 10:27 Expected date of discharge: 02/07/21 Attending physician: Linn De La Torre Consults: 02/04/21 07:44 Consult Physician Routine Consulting Provider: Rubi Rajput Consult Reason/Comments: Sepsis, positive blood cultures, appendicitis Do you want consulting provider notified?: Yes Primary care physician: Varinder Pierre - Discharge Diagnosis(es) (1) Acute appendicitis Current Visit: Yes Status: Acute (2) Asthma Current Visit: Yes Status: Acute (3) Leukocytosis Current Visit: Yes Status: Acute (4) E. coli bacteremia Current Visit: Yes Status: Acute (5) Acute perforated appendicitis Current Visit: Yes Status: Acute (6) Acute appendicitis with localized peritonitis and abscess Current Visit: Yes Status: Acute (7) Acute appendicitis with perforation, localized peritonitis, abscess, and gangrene Current Visit: Yes Status: Acute (8) Sepsis Current Visit: No Status: Acute Hospital Course: CHIEF COMPLAINT: Appendicitis HISTORY OF PRESENT ILLNESS: The patient is a 35 year old male status post appendectomy 02/04/2021 with ruptured appendicitis and localized abscess with peritonitis. He is tolerating regular diet. He is passing flatus. Family is at bedside. He is comfortable. REVIEW OF ORGAN SYSTEMS: No fevers or chills. PHYSICAL EXAM: VITALS: Reviewed CONSTITUTIONAL: Well developed and in no acute distress. EYES: Conjuctivae without sclera icterus. Extraocular movements grossly intact. HEAD, EARS, NOSE, THROAT: Moist buccal mucosa. Head is atraumatic, normocephalic. Hears conversational speech. No nasal drainage. RESPIRATORY: Non-labored respirations and equal bilateral excursions. No gross wheezes. CARDIOVASCULAR: Palpable 2+ radial pulses. ABDOMEN: Decreased tenderness right lower quadrant. ANDERS serous. MUSCULOSKELETAL: No clubbing cyanosis or edema SKIN: Warm and well perfused with good skin turgor. NEUROLOGIC: Cranial nerves II through XII grossly intact. No focal or lateralizing signs. PSYCH: Appropriate affect. Alert and oriented to person, place and time. Displays appropriate insight. CLINCAL LABS: Reviewed. WBC trending from 25,000 down to over 12,000 MICRO: Wound gram-negative bacilli. E. coli sensitive to all antibiotics from blood cultures ASSESSMENT: 1. Acute appendicitis with rupture and localized abscess with localized peritonitis 2. Leukocytosis 3. Sepsis with positive E. coli blood culture PLAN: 1. Continue ANDERS drain 2. Continue IV antibiotics 3. Discharge pending resolution of sepsis, leukocytosis. Patient Condition at Discharge: Good Plan - Discharge Summary Discharge Rx Participant: No New Discharge Prescriptions: New metroNIDAZOLE [Flagyl] 500 mg PO TID #30 tab Ciprofloxacin HCl [Cipro] 500 mg PO Q12HR #20 tablet Ibuprofen [Motrin] 600 mg PO Q8HR PRN #30 tab PRN Reason: Pain Acetaminophen Tab [Tylenol Tab] 1,000 mg PO Q6HR PRN #30 tablet PRN Reason: Pain Discharge Medication List Acetaminophen Tab [Tylenol Tab] 1,000 mg PO Q6HR PRN #30 tablet 02/07/21 [Rx] Ciprofloxacin HCl [Cipro] 500 mg PO Q12HR #20 tablet 02/07/21 [Rx] Ibuprofen [Motrin] 600 mg PO Q8HR PRN #30 tab 02/07/21 [Rx] metroNIDAZOLE [Flagyl] 500 mg PO TID #30 tab 02/07/21 [Rx] Follow up Appointment(s)/Referral(s): Varinder Jay MD [Primary Care Provider] - 1-2 days Linn De La Torre MD [STAFF PHYSICIAN] - 02/09/21 (Please call to confirm time) Patient Instructions/Handouts: *Surgery [facility] - Managing Your Pain After Surgery Without Opioids, Jamaal-Reis Drain Care (DC), Peritonitis (DC), Laparoscopic Appendectomy (DC) Activity/Diet/Wound Care/Special Instructions: Keep ANDERS site dry. Do not remove dressing. Using antibacterial soap. No lifting over 4 pounds 4 weeks, March 06August shower. No bathtub soaks for 2 weeks, February 17 Use ice along incisions for today to prevent swelling. Take tylenol, aleve/ibuprofen, simethicone scheduled for 3 days for best pain relief Discharge Disposition: HOME SELF-CARE
--- NOTE | 2021-02-07 14:35 | P.PN ---
Subjective Progress Note Date: 02/07/21 CHIEF COMPLAINT: Appendicitis HISTORY OF PRESENT ILLNESS: The patient is a 35 year old male status post appendectomy 02/04/2021 with ruptured appendicitis and localized abscess with peritonitis. He is tolerating diet. He did have fevers last night after his antibiotic was adjusted from Zosyn to Unasyn. Otherwise he feels well. REVIEW OF ORGAN SYSTEMS: No nausea or vomiting. No chest pain. Temperature 101 after adjustment of antibiotics from Zosyn to Unasyn. PHYSICAL EXAM: VITALS: Reviewed CONSTITUTIONAL: Well developed and in no acute distress. EYES: Conjuctivae without sclera icterus. Extraocular movements grossly intact. HEAD, EARS, NOSE, THROAT: Moist buccal mucosa. Head is atraumatic, normocephalic. Hears conversational speech. No nasal drainage. RESPIRATORY: Non-labored respirations and equal bilateral excursions. No gross wheezes. CARDIOVASCULAR: Palpable 2+ radial pulses. ABDOMEN: ANDERS serosanguineous. Resolving right lower quadrant tenderness. MUSCULOSKELETAL: No clubbing cyanosis or edema SKIN: Warm and well perfused with good skin turgor. NEUROLOGIC: Cranial nerves II through XII grossly intact. No focal or lateralizing signs. PSYCH: Appropriate affect. Alert and oriented to person, place and time. Displays appropriate insight. CLINCAL LABS: Reviewed. WBC trending from 25,000 down to over 12,000. WBC normal at 9500. Hemoglobin stable 11.9. MICRO: Wound gram-negative bacilli. E. coli sensitive to all antibiotics from blood cultures. Gram stain and culture demonstrates insensitivity of E. coli to Unasyn and resistance to ampicillin. ASSESSMENT: 1. Acute appendicitis with rupture and localized abscess with localized peritonitis 2. Leukocytosis 3. Sepsis with positive E. coli blood culture PLAN: 1. Outpatient antibiotics with oral ciprofloxacin and Flagyl described as sensitivities confirm E. coli responsive to ciprofloxacin 2. Continue Jamaal-Reis drain with removal in the office as outpatient. 3. Recommend use incentive spirometer for discharge home 4. Follow-up in the office in 3 days. Objective - Vital Signs Vital signs: Vital Signs Temp 98.8 F 02/07/21 07:00 Pulse 76 02/07/21 08:00 Resp 16 02/07/21 08:00 BP 128/86 02/07/21 07:00 Pulse Ox 98 02/07/21 07:00 Intake & Output 02/06/21 02/07/21 02/07/21 18:59 06:59 18:59 Intake Total 300 0 740 Balance 300 0 740 Intake: Intake, IV Titration 2079 Amount Sodium Chloride 0.9% 2079 000 ml @ 130 mls/hr IV . Q7H42M [facility] Rx#:[id number] Oral 300 740 Other: Voiding Method Toilet Toilet # Voids 2 - Labs CBC & Chem 7: 02/07/21 06:08 02/06/21 07:46 Labs: Abnormal Lab Results - Last 24 Hours (Table) 02/07/21 Range/Units 06:08 RBC 4.20 L (4.30-5.90) m/uL Hgb 11.9 L (13.0-17.5) gm/dL Hct 36.2 L (39.0-53.0) % Microbiology - Last 24 Hours (Table) 02/04/21 12:00 Anaerobic Culture - Final Appendix Anaerobic Gm Negative Bacilli 02/04/21 12:00 Gram Stain - Final Appendix Wound Culture - Final Escherichia coli Assessment and Plan (1) Acute appendicitis Current Visit: Yes Status: Acute Code(s): K35.80 - UNSPECIFIED ACUTE APPENDICITIS SNOMED Code(s): 06251295 (2) Asthma Current Visit: Yes Status: Acute Code(s): J45.909 - UNSPECIFIED ASTHMA, UNCOMPLICATED SNOMED Code(s): 839379357 (3) Leukocytosis Current Visit: Yes Status: Acute Code(s): D72.829 - ELEVATED WHITE BLOOD CELL COUNT, UNSPECIFIED SNOMED Code(s): 190071171 (4) E. coli bacteremia Current Visit: Yes Status: Acute Code(s): R78.81 - BACTEREMIA; B96.20 - UNSP ESCHERICHIA COLI THE CAUSE OF DISEASES CLASSD [facility] SNOMED Code(s): 566163231037 (5) Acute perforated appendicitis Current Visit: Yes Status: Acute Code(s): K35.32 - ACUTE APPENDICITIS WITH PERF AND LOC PERITONITIS, W/O ABSCS SNOMED Code(s): 701835649 (6) Acute appendicitis with localized peritonitis and abscess Current Visit: Yes Status: Acute Code(s): K35.33 - ACUTE APPENDICITIS WITH PERF AND LOC PERITONITIS, WITH ABSCS SNOMED Code(s): 648784650 (7) Acute appendicitis with perforation, localized peritonitis, abscess, and gangrene Current Visit: Yes Status: Acute Code(s): K35.33 - ACUTE APPENDICITIS WITH PERF AND LOC PERITONITIS, WITH ABSCS SNOMED Code(s): 072963057 (8) Sepsis Current Visit: No Status: Acute Code(s): A41.9 - SEPSIS, UNSPECIFIED ORGANISM SNOMED Code(s): 82509128
--- NOTE | 2021-02-07 14:38 | P.DS ---
Providers Date of admission: 02/04/21 10:27 Expected date of discharge: 02/07/21 Attending physician: Linn De La Torre Consults: 02/04/21 07:44 Consult Physician Routine Consulting Provider: Rubi Rajput Consult Reason/Comments: Sepsis, positive blood cultures, appendicitis Do you want consulting provider notified?: Yes Primary care physician: Varinder Pierre - Discharge Diagnosis(es) (1) Acute appendicitis Current Visit: Yes Status: Acute (2) Asthma Current Visit: Yes Status: Acute (3) Leukocytosis Current Visit: Yes Status: Acute (4) E. coli bacteremia Current Visit: Yes Status: Acute (5) Acute perforated appendicitis Current Visit: Yes Status: Acute (6) Acute appendicitis with localized peritonitis and abscess Current Visit: Yes Status: Acute (7) Acute appendicitis with perforation, localized peritonitis, abscess, and gangrene Current Visit: Yes Status: Acute (8) Sepsis Current Visit: No Status: Acute Hospital Course: Postoperative Diagnosis: 1. Acute appendicitis with perforation, localized peritonitis and abscess 2. Leukocytosis 3. Sepsis with positive E. coli blood culture 4. Obesity due to excess calories, BMI 34.6 COURSE: The patient is a 35 year old male admitted with perforated appendicitis. He underwent appendectomy 02/04/2021 for sepsis including E. coli bacteremia. Antibiotic was managed with Zosyn for which E. coli was sensitive to antibiotic. Leukocytosis had resolved. He was tolerating diet. Pain was well-controlled. Patient had intolerance to Unasyn with recurrent fevers as sensitivities demonstrate resistance to Unasyn. Discharge antibiotics including oral ciprofloxacin and Flagyl. Follow-up in the office in 3-5 days with removal of ANDERS drain reviewed. Procedures: Procedure(s) Performed: 1. Robotic-assisted daVinci Xi laparoscopic lysis of adhesions over 1 hr 2. Robotic-assisted daVinci Xi laparoscopic appendectomy with drainage of periappendiceal abscess 3. Placement of ANDERS drain #19 right lower quadrant/pelvis 4. Peritoneal lavage 1000 mL normal saline Anesthesia: GETA local Estimated Blood Loss (ml): 10 Pathology: other (appendix, aerobic and anerobic culture of peritoneal fluid from appendiceal abscess) Condition: stable Disposition: floor Operative Findings: 1. Localized abscess 10-mL drained right lower quadrant 2. Gangrenous ruptured purulent appendicitis at tip of appendix 3. Abdomen irrigated with 1000-mL normal saline 4. ANDERS drain placed at right lower quadrant of abscess pocket drained 5. Appendix resected at base 6. Staple line hemostatic Patient Condition at Discharge: Good Plan - Discharge Summary Discharge Rx Participant: No New Discharge Prescriptions: New metroNIDAZOLE [Flagyl] 500 mg PO TID #30 tab Ciprofloxacin HCl [Cipro] 500 mg PO Q12HR #20 tablet Ibuprofen [Motrin] 600 mg PO Q8HR PRN #30 tab PRN Reason: Pain Acetaminophen Tab [Tylenol Tab] 1,000 mg PO Q6HR PRN #30 tablet PRN Reason: Pain Discharge Medication List Acetaminophen Tab [Tylenol Tab] 1,000 mg PO Q6HR PRN #30 tablet 02/07/21 [Rx] Ciprofloxacin HCl [Cipro] 500 mg PO Q12HR #20 tablet 02/07/21 [Rx] Ibuprofen [Motrin] 600 mg PO Q8HR PRN #30 tab 02/07/21 [Rx] metroNIDAZOLE [Flagyl] 500 mg PO TID #30 tab 02/07/21 [Rx] Follow up Appointment(s)/Referral(s): Varinder Jay MD [Primary Care Provider] - 1-2 days Linn De La Torre MD [STAFF PHYSICIAN] - 02/09/21 (Please call to confirm time) Patient Instructions/Handouts: *[facility]gery [facility] - Managing Your Pain After Surgery Without Opioids, Jamaal-Reis Drain Care (DC), Peritonitis (DC), Laparoscopic Appendectomy (DC) Activity/Diet/Wound Care/Special Instructions: Keep ANDERS site dry. Do not remove dressing. Using antibacterial soap. No lifting over 4 pounds 4 weeks, March 06August shower. No bathtub soaks for 2 weeks, February 17 Use ice along incisions for today to prevent swelling. Take tylenol, aleve/ibuprofen, simethicone scheduled for 3 days for best pain relief Discharge Disposition: HOME SELF-CARE
== END 2021-02-07 15:07 | disposition home or self-care (01) | DRG 853 ==
LOC: EC 06:24 → 6NMEDSUR 08:49 → OBSVTOIN 02-04 10:27
PROVIDERS: ADMIT Surgery Plastic and Reconstructive Surgery; ATTEND Surgery Plastic and Reconstructive Surgery
PROC: 0DNU4ZZ Release Omentum, Percutaneous Endoscopic Approach (ICD-10-PCS; principal; 2021-02-04 11:00)
PROC: 8E0W4CZ Robotic Assisted Procedure of Trunk Region, Percutaneous Endoscopic Approach (ICD-10-PCS; principal; 2021-02-04 11:00)
PROC: 0DTJ4ZZ Resection of Appendix, Percutaneous Endoscopic Approach (ICD-10-PCS; principal; 2021-02-04 11:00)
PROC: 0DN84ZZ Release Small Intestine, Percutaneous Endoscopic Approach (ICD-10-PCS; principal; 2021-02-04 11:00)
PROC: 3E1M38Z Irrigation of Peritoneal Cavity using Irrigating Substance, Percutaneous Approach (ICD-10-PCS; principal; 2021-02-04 11:00)
DX: A41.51 Sepsis due to Escherichia coli [E. coli] (principal); K35.33 Acute appendicitis with perforation, localized peritonitis, and gangrene, with abscess; I96 Gangrene, not elsewhere classified; J45.909 Unspecified asthma, uncomplicated; Z20.822 Contact with and (suspected) exposure to COVID-19; K66.0 Peritoneal adhesions (postprocedural) (postinfection); K46.9 Unspecified abdominal hernia without obstruction or gangrene; E66.09 Other obesity due to excess calories; Z68.34 Body mass index [BMI] 34.0-34.9, adult; Z82.49 Family history of ischemic heart disease and other diseases of the circulatory system; Z80.9 Family history of malignant neoplasm, unspecified
CPT/HCPCS: 36415; 74177; 80053; 81003; 82150; 83605; 83690; 85025; 87040; 87070; 87075; 87077; 87186; 87205; 87635; 88304; 96361; 96374; 96375; 99285

== ENCOUNTER 2022-04-18 21:17 | Emergency (ER) | payer OTHER ==
[2022-04-18 22:05] VITALS: BP 164/88; PULSE 100; RESP 20; TEMP 99.4
--- NOTE | 2022-04-18 22:36 | ED ---
Abdominal Pain HPI - General Source: patient, RN notes reviewed Mode of arrival: ambulatory Limitations: no limitations <Kimberlyn Bowers - Last Filed: 04/18/22 23:30> <Zulay Boateng - Last Filed: 04/19/22 01:50> - General Chief Complaint: Abdominal Pain Stated Complaint: Abdominal cramps, Fever Time Seen by Provider: 04/18/22 22:34 - History of Present Illness Initial Comments: Patient is a 36-year-old male who presents to the emergency department with a chief complaint of abdominal pain. Pain started yesterday. Describes it as an intermittent severe cramping in the lower abdomen with radiation to the back. Patient also reports 3-4 episodes daily diarrhea containing mucous, nonbloody. Reports fever at home, temperature today was 100.4F. Patient has not taken any antipyretics today. No nausea or vomiting. No trouble urinating, blood in the urine. Patient does have history of appendectomy. (Kimberlyn Bowers) - Related Data Previous Rx's Medication Instructions Recorded Acetaminophen Tab [Tylenol Tab] 1,000 mg PO Q6HR PRN #30 tablet 02/07/21 Ciprofloxacin HCl [Cipro] 500 mg PO Q12HR #20 tablet 02/07/21 Ibuprofen [Motrin] 600 mg PO Q8HR PRN #30 tab 02/07/21 metroNIDAZOLE [Flagyl] 500 mg PO TID #30 tab 02/07/21 Amoxic-Pot Clav 875-125Mg 1 tab PO Q12HR 10 Days #20 tab 04/19/22 [Augmentin 875-125] Allergies Allergy/AdvReac Type Severity Reaction Status Date / Time No Known Allergies Allergy Verified 02/04/21 10:22 Review of Systems ROS Other: All systems not noted in ROS Statement are negative. <Kimberlyn Bowers - Last Filed: 04/18/22 23:30> ROS Other: All systems not noted in ROS Statement are negative. <Zulay Boateng - Last Filed: 04/19/22 01:50> ROS Statement: Those systems with pertinent positive or pertinent negative responses have been documented in the HPI. Past Medical History Past Medical History: Asthma History of Any Multi-Drug Resistant Organisms: None Reported Past Surgical History: No Surgical Hx Reported Past Anesthesia/Blood Transfusion Reactions: No Reported Reaction Additional Past Anesthesia/Blood Transfusion Reaction / Comment(s): no history of blood transfusions Past Psychological History: No Psychological Hx Reported Smoking Status: Never smoker Past Alcohol Use History: None Reported Past Drug Use History: Marijuana - Past Family History Father Family Medical History: Cancer, Hypertension <Kimberlyn Bowers - Last Filed: 04/18/22 23:30> General Exam Limitations: no limitations <Kimberlyn Bowers - Last Filed: 04/18/22 23:30> Limitations: no limitations General appearance: alert, in no apparent distress Head exam: Present: atraumatic, normocephalic, normal inspection Eye exam: Present: normal appearance Neck exam: Present: normal inspection Respiratory exam: Present: normal lung sounds bilaterally. Absent: respiratory distress, wheezes, rales, rhonchi, stridor Cardiovascular Exam: Present: regular rate, normal rhythm, normal heart sounds. Absent: systolic murmur, diastolic murmur, rubs, gallop, clicks GI/Abdominal exam: Present: soft. Absent: distended, tenderness, guarding, rebound, rigid Neurological exam: Present: alert, oriented X3, CN II-XII intact Psychiatric exam: Present: normal affect, normal mood Skin exam: Present: warm, dry, intact, normal color. Absent: rash <Zulay Boateng - Last Filed: 04/19/22 01:50> Course Vital Signs 04/18/22 22:01 Temperature 99.4 F Pulse Rate 100 Respiratory 20 Rate Blood Pressure 164/88 O2 Sat by Pulse 97 Oximetry Medical Decision Making - Lab Data Result diagrams: 04/18/22 23:09 04/18/22 23:09 <Zulay Boateng - Last Filed: 04/19/22 01:50> - Medical Decision Making Was pt. sent in by a medical professional or institution (, PA, PROOF TECHNICIAN HELPER, urgent care, hospital, or [facility]...) When possible be specific @ -[No] Did you speak to anyone other than the patient for history (EMS, parent, family, police, friend...)? What history was obtained from this source @ - Did you review nursing and triage notes (agree or disagree)? Why? @ -[I reviewed and agree with nursing and triage notes] Were old charts reviewed (outside hosp., previous admission, EMS record, old EKG, old radiological studies, urgent care reports/EKG's, [facility] records)? Report findings @ -[No old charts were reviewed] Differential Diagnosis (chest pain, altered mental status, abdominal pain women, abdominal pain men, vaginal bleeding, weakness, fever, dyspnea, syncope, headache, dizziness, GI bleed, back pain, seizure, CVA, palpatations, mental health)? @ -[facility] Differential Abdominal Pain Men: Appendicitis, cholecystitis, diverticulosis, ischemic bowel, pancreatitis, hepatitis, UTI, gastroenteritis, AAA, incarcerated hernia, bowel obstruction, constipation, inflammatory bowel, hepatitis, peptic ulcer disease, splenic infarction, perforated viscus, testicular torsion... This is not meant to be an all-inclusive list EKG interpreted by me (3pts min.). @ -None X-rays interpreted by me (1pt min.). @ -[None done] CT interpreted by me (1pt min.). @ -No, radiologist report reviewed. Sigmoid diverticulitis noted. U/S interpreted by me (1pt. min.). @ -[None done] What testing was considered but not performed or refused? (CT, X-rays, U/S, labs)? Why? @ -[None] What meds were considered but not given or refused? Why? @ -[None] Did you discuss the management of the patient with other professionals (professionals i.e. , PA, PROOF TECHNICIAN HELPER, lab, RT, psych nurse, social work specialist, diagnostic medical sonographer, teacher, surveillance sensor officer, case operator)? Give summary @ -[No] Was smoking cessation discussed for >3mins.? @ -[No] Was critical care preformed (if so, how long)? @ -[No] Were there social determinants of health that impacted care today? How? (Homelessness, low income, unemployed, alcoholism, drug addiction, transportation, low edu. Level, literacy, decrease access to med. care, senior care, rehab)? @ -[No] Was there de-escalation of care discussed even if they declined (Discuss DNR or withdrawal of care, Hospice)? DNR status @ -[No] What co-morbidities impacted this encounter? (DM, HTN, Smoking, COPD, CAD, Cancer, CVA, ARF, Chemo, Hep., AIDS, mental health diagnosis, sleep apnea, morbid obesity)? @ -[None] Was patient admitted / discharged? Hospital course, mention meds given and route, prescriptions, significant lab abnormalities, going to OR and other pertinent info. @ -Patient is a 36-year-old male presenting with chief complaint of lower abdominal pain as well as mucus in the stools. On physical examination abdomen is soft, nontender, nondistended. Patient is mildly febrile. Lab work shows WBC 16.8. CT of the abdomen and pelvis shows sigmoid diverticulitis. Patient is able to tolerate oral intake. He will be started on Augmentin 875 twice a day for 10 days. Patient is agreeable with this plan. He is discharged home. Follow-up with PCP. Report back to ER with any new or worsening symptoms. Discussed return parameters and answered all questions. Patient conveyed verbal understanding and agreed to the plan. I discussed this case in detail with my attending Dr. Dominguez Undiagnosed new problem with uncertain prognosis? @ -[No] Drug Therapy requiring intensive monitoring for toxicity (Heparin, Nitro, Insulin, Cardizem)? @ -[No] Were any procedures done? @ -[No] Diagnosis/symptom? @ -Sigmoid diverticulitis Acute, or Chronic, or Acute on Chronic? @ -Acute Uncomplicated (without systemic symptoms) or Complicated (systemic symptoms)? @ -Complicated Side effects of treatment? @ -[No] Exacerbation, Progression, or Severe Exacerbation? @ -[No] Poses a threat to life or bodily function? How? (Chest pain, [place], [place], pneumonia, PE, COPD, DKA, ARF, appy, cholecystitis, CVA, Diverticulitis, Homicidal, Suicidal, threat to staff... and all critical care pts) @ -Diverticulitis may post threat to life or bodily function if not fully resolved, may lead to sepsis or bowel perforation. Treatment is initiated and patient is counseled on the need for follow-up as well as worsening symptoms that prompt presentation at the ER. (Zulay Boateng) - Lab Data Lab Results 04/18/22 04/18/22 04/18/22 Range/Units 23:09 23:09 23:09 WBC 16.8 H (3.8-10.6) k/uL RBC 4.52 (4.30-5.90) m/uL Hgb 13.1 (13.0-17.5) gm/dL Hct 38.5 L (39.0-53.0) % MCV 85.3 (80.0-100.0) fL MCH 29.1 (25.0-35.0) pg MCHC 34.1 (31.0-37.0) g/dL RDW 12.2 (11.5-15.5) % Plt Count 293 (150-450) k/uL MPV 7.8 Neutrophils % 82 % Lymphocytes % 10 % Monocytes % 6 % Eosinophils % 1 % Basophils % 0 % Neutrophils # 13.7 H (1.3-7.7) k/uL Lymphocytes # 1.7 (1.0-4.8) k/uL Monocytes # 1.1 H (0-1.0) k/uL Eosinophils # 0.1 (0-0.7) k/uL Basophils # 0.1 (0-0.2) k/uL Sodium 137 (137-145) mmol/L Potassium 4.0 (3.5-5.1) mmol/L Chloride 101 (98-107) mmol/L Carbon Dioxide 27 (22-30) mmol/L Anion Gap 9 mmol/L BUN 16 (9-20) mg/dL Creatinine 0.90 (0.66-1.25) mg/dL Est GFR (CKD-EPI)AfAm >90 (>60 ml/min/1.73 sqM) Est GFR (CKD-EPI)NonAf >90 (>60 ml/min/1.73 sqM) Glucose 105 H (74-99) mg/dL Plasma Lactic Acid Gerhard 0.7 (0.7-2.0) mmol/L Calcium 9.6 (8.4-10.2) mg/dL Total Bilirubin 0.7 (0.2-1.3) mg/dL AST 24 (17-59) U/L ALT 42 (4-49) U/L Alkaline Phosphatase 90 (38-126) U/L Total Protein 7.5 (6.3-8.2) g/dL Albumin 4.5 (3.5-5.0) g/dL Lipase 74 (23-300) U/L Disposition <Kimberlyn Bowers - Last Filed: 04/18/22 23:30> Is patient prescribed a controlled substance at d/c from ED?: No Time of Disposition: 01:07 <Indio Boatengoree - Last Filed: 04/19/22 01:50> Clinical Impression: Diverticulitis Disposition: HOME SELF-CARE Condition: Good Instructions (If sedation given, give patient instructions): Diverticulitis (ED) Additional Instructions: Follow-up with PCP. Report back to ER with any new or worsening symptoms. Take medication as prescribed. Prescriptions: Amoxic-Pot Clav 875-125Mg [Augmentin 875-125] 1 tab PO Q12HR 10 Days #20 tab Referrals: Varinder Jay MD [Primary Care Provider] - 1-2 days
[2022-04-18 23:31] LABS: Basophils # (A) 0.1 k/uL (0-0.2); Basophils % (A) 0 %; Eosinophils # (A) 0.1 k/uL (0-0.7); Eosinophils % (A) 1 %; HCT 38.5 % (39.0-53.0); HGB 13.1 gm/dL (13.0-17.5); Lymphocytes # (A) 1.7 k/uL (1.0-4.8); Lymphocytes % (A) 10 %; MCH 29.1 pg (25.0-35.0); MCHC 34.1 g/dL (31.0-37.0); MCV 85.3 fL (80.0-100.0); Mean Platelet Volume 7.8; Monocytes # (A) 1.1 k/uL (0-1.0); Monocytes % (A) 6 %; Neutrophils # (A) 13.7 k/uL (1.3-7.7); Neutrophils % (A) 82 %; Platelet Count 293 k/uL (150-450); RBC 4.52 m/uL (4.30-5.90); RDW 12.2 % (11.5-15.5); WBC 16.8 k/uL (3.8-10.6)
[2022-04-18 23:37] LABS: ALT 42 U/L (4-49); AST 24 U/L (17-59); African American GFR (CKD) >90 (>60 ml/min/1.73 sqM); Albumin 4.5 g/dL (3.5-5.0); Alkaline Phosphatase 90 U/L (38-126); Anion Gap 9 mmol/L; Blood Urea Nitrogen 16 mg/dL (9-20); Calcium 9.6 mg/dL (8.4-10.2); Carbon Dioxide 27 mmol/L (22-30); Chloride 101 mmol/L (98-107); Glucose 105 mg/dL (74-99); Lipase 74 U/L (23-300); Non-African American GFR(CKD) >90 (>60 ml/min/1.73 sqM); Sodium 137 mmol/L (137-145); Total Bilirubin 0.7 mg/dL (0.2-1.3); Total Protein 7.5 g/dL (6.3-8.2)
--- NOTE | 2022-04-18 23:45 | CT ---
EXAMINATION TYPE: CT abdomen pelvis w con DATE OF EXAM: 04/18/2022 COMPARISON: None HISTORY: lower abd pain CT DLP: 1484.5 mGycm Automated exposure control for dose reduction was used. CONTRAST: Performed with IV Contrast, patient injected with 100 mL of Isovue 300. Images obtained from the diaphragm to the floor the pelvis with the IV contrast. There is a 4 cm fat-containing umbilical hernia. The lung bases are clear. No pleural effusion. Heart size is normal. No pericardial effusion. Liver spleen and stomach pancreas and gallbladder appear in tact. The bile duct are not dilated. There is no adrenal mass. Kidneys show satisfactory contrast opacification. No hydronephrosis. Ureter s are not dilated. There is apparent clip from appendectomy. There is wall thickening and fat stranding around the mid sigmoid colon. There are a few sigmoid dive rticula. No evidence of free air. No evidence of bowel obstruction. No ascites. The lumbar vertebra have normal spacing and alignment. Posterior elements are intact. No compression fracture. The bony pelvis is intact. The hip joints are intact. IMPRESSION: There is evidence of sigmoid diverticulitis which is a change compared to old exam. There is clearing of the inflammatory changes of appendicitis compared to old exam. No evidence of a drainable abscess fluid collection.
[2022-04-19] MEDS ORDERED: AMOXIC-POT CLAV 875-125MG 1 EACH TAB PO STA (01:05)
[2022-04-19] MEDS ORDERED: ACET/COD 300 MG/30 MG STARTER PACK 6 TAB BTL PO STA (01:06)
== END 2022-04-19 01:30 | disposition home or self-care (01) ==
LOC: EC 21:17
DX: K57.32 Diverticulitis of large intestine without perforation or abscess without bleeding (principal); J45.909 Unspecified asthma, uncomplicated; F12.90 Cannabis use, unspecified, uncomplicated
CPT/HCPCS: 80053; 83605; 83690; 85025; 74177; 99284; Q9967; 36415

== ENCOUNTER → 2022-10-07 | Outpatient (CLI) | payer OTHER ==
[2022-10-07 16:37] LABS: ALT 23 U/L (10-49); AST 20 U/L (14-35); Albumin 4.7 d/dL (3.8-4.9); Albumin/Globulin Ratio 1.96 Ratio (1.60-3.17); Alkaline Phosphatase 49 U/L (41-126); BUN/Creat Ratio 23.11 Ratio (12.00-20.00); Blood Urea Nitrogen 20.8 mg/dL (9.0-27.0); Calcium 9.7 mg/dL (8.7-10.3); Carbon Dioxide 27.3 mmol/L (21.6-31.8); Chloride 104 mmol/L (96-109); Globulin 2.4 d/dL (1.6-3.3); Glucose 92 mg/dL (70-110); Potassium 4.2 mmol/L (3.5-5.5); Sodium 141 mmol/L (135-145); Total Bilirubin 0.4 mg/dL (0.3-1.2); Total Protein 7.1 d/dL (6.2-8.2)
[2022-10-07 17:36] LABS: HCT 40.4 % (39.6-50.0); HGB 13.2 d/dL (12.0-15.0); MCH 28.4 pg (27.0-32.0); MCHC 32.7 d/dL (32.0-37.0); MCV 86.9 FL (80.0-97.0); Mean Platelet Volume 10.3 FL (9.5-12.2); NRBC Per 100 WBC 0 X 10*3/uL (0.00-0.01); Platelet Count 225 X 10*3/uL (140-440); RBC 4.65 X 10*6/uL (4.40-5.60); RDW 13.2 % (11.5-14.5); WBC 7.91 X 10*3/uL (4.50-10.00)
== END | disposition home or self-care (01) ==
LOC: LABWHC1 10:41
PROVIDERS: ATTEND Surgery Plastic and Reconstructive Surgery
DX: K57.92 Diverticulitis of intestine, part unspecified, without perforation or abscess without bleeding (principal)
CPT/HCPCS: 36415; 80053; 85027

== ENCOUNTER 2022-10-14 09:30 | Inpatient (IN) | payer OTHER ==
[2022-10-12 09:39] VITALS: BMI 33.2
--- NOTE | 2022-10-14 08:05 | P.GSHP ---
History of Present Illness H&P Date: 10/14/22 CHIEF COMPLAINT: Sigmoid diverticulitis, recurrent HISTORY OF PRESENT ILLNESS: The patient is a 36-year-old male who presents with change in bowel habits including recurrent sigmoid diverticulitis for over 6 months. He has been on multiple antibiotics also within 6 months. He presents for surgical options, sigmoid colectomy. PAST MEDICAL HISTORY: Please see list. PAST SURGICAL HISTORY: Please see list. MEDICATIONS: Please see list. ALLERGIES: Please see list. SOCIAL HISTORY: No illicit drug use FAMILY HISTORY: No reports of Crohn disease or ulcerative colitis. REVIEW OF ORGAN SYSTEMS: CONSTITUTIONAL: Denies any fever or chills. HEENT: Denies any trouble with vision or nosebleeds. No difficulty swallowing. LYMPHATIC: The patient denies any lumps and bumps around the neck. ENDOCRINE: Denies any thyroid disorders. RESPIRATORY: Denies pneumonia. Denies any troubles with breathing or dyspnea on exertion. CARDIOVASCULAR: Denies any chest pain, palpitations, or recent heart attacks. GASTROINTESTINAL: Has chronic diverticulitis. GENITOURINARY: Has increased urinary frequency. MUSCULOSKELETAL: Has back pain, stiffness, joint arthritis. NEUROLOGIC: Denies any numbness or tingling along the distal extremities. No seizure disorders or headaches. PSYCHIATRIC: Denies depression or suidical ideation. HEMATOLOGIC: Denies any abnormal bleeding or bruising. PHYSICAL EXAM: VITAL SIGNS: Stable GENERAL: Well-developed pleasant in no acute distress. HEENT: No scleral icterus. Extraocular movements grossly intact. Moist buccal mucosa. NECK: Supple without lymphadenopathy. CHEST: Unlabored respirations. Equal bilateral excursions. CARDIOVASCULAR: Regular rate and rhythm. Distal 2+ pulses. ABDOMEN: Soft, nontender, nondistended. MUSCULOSKELETAL: No clubbing, cyanosis, or edema. NERUO: Cranial nerves 2-12 grossly intact. PSYCH: Alert and oriented to person place and time. ASSESSMENT: 1. Recurrent sigmoid diverticulitis PLAN: 1. Benefits and risks of surgical lower anterior resection, sigmoid resection was reviewed in detail. Robotic-assisted approach was also described. 2. Enhanced colon recovery program. 3. DVT prophylaxis. 4. Antibiotic prophylaxis. 5. Inpatient hospitalization greater than 2 nights. 6. Patient is elevated risk for complications due to multiple recurrent bouts of diverticulitis and possible open technique with colostomy creation Past Medical History Past Medical History: Asthma Additional Past Medical History / Comment(s): childhood asthma., hx of perforated appendix and sepsis (01/2021)., diverticulitis. History of Any Multi-Drug Resistant Organisms: None Reported Past Surgical History: Appendectomy Additional Past Surgical History / Comment(s): COLONOSCOPY Past Anesthesia/Blood Transfusion Reactions: No Reported Reaction Additional Past Anesthesia/Blood Transfusion Reaction / Comment(s): no history of blood transfusions Past Psychological History: No Psychological Hx Reported Smoking Status: Never smoker Past Alcohol Use History: Rare Past Drug Use History: Marijuana Additional Drug Use History / Comment(s): denies current marijuana use - Past Family History Father Family Medical History: Cancer, Hypertension Medications and Allergies Home Medications Medication Instructions Recorded Confirmed Type Multivitamins, Thera [Multivitamin 1 tab PO DAILY 10/12/22 10/12/22 History (formulary)] Allergies Allergy/AdvReac Type Severity Reaction Status Date / Time No Known Allergies Allergy Verified 10/12/22 09:16
[~2022-10-14 09:30] MED LIST: ACETAMINOPHEN TAB 500 MG TAB PO PRN; ALVIMOPAN 12 MG CAPSULE PO PRN; Antibiotics per Pharmacy 1 EACH MISC MISCELLANE PRN; HEPARIN SODIUM,PORCINE/PF 5,000 UNIT/0.5 ML SYRINGE SQ PRN; ONDANSETRON 4 MG/2 ML VIAL IVP PRN; metroNIDAZOLE-NS PMX 500 MG in SALINE 1 100ML.BAG IVPB PRN
[2022-10-14] MEDS ORDERED: ONDANSETRON 4 MG/2 ML VIAL IVP ONE (11:00)
[2022-10-14] MEDS ORDERED: DEXAMETHASONE SOD PHOSPHATE 4 MG/ML 1 ML VIAL IV ONE (11:00)
[2022-10-14] MEDS ORDERED: HYDROmorphone 0.5 MG/0.5 ML SYRINGE IVP PRN (11:00)
[2022-10-14] MEDS: LACTATED RINGERS 1,000 ML IV SCH ×2 (11:35→12:55)
[2022-10-14] MEDS ORDERED: LIDOCAINE 1% (10MG/ML) FOR IV START INTRADERMA ONE (11:35)
[2022-10-14 11:47] LABS: Glucose,Whole Blood 102 mg/dL (70-110)
[2022-10-14 11:49] LABS: Basophils % (A) 0 %; Eosinophils % (A) 1 %; HCT 42.4 % (39.0-53.0); HGB 14.2 gm/dL (13.0-17.5); Lymphocytes # (A) 1.3 k/uL (1.0-4.8); Lymphocytes % (A) 18 %; MCH 28.4 pg (25.0-35.0); MCHC 33.6 g/dL (31.0-37.0); MCV 84.7 fL (80.0-100.0); Mean Platelet Volume 7.5; Monocytes # (A) 0.4 k/uL (0-1.0); Monocytes % (A) 6 %; Neutrophils # (A) 5.7 k/uL (1.3-7.7); Neutrophils % (A) 75 %; Platelet Count 241 k/uL (150-450); RDW 13.3 % (11.5-15.5); WBC 7.6 k/uL (3.8-10.6)
[2022-10-14 12:03] LABS: ALT 32 U/L (4-49); AST 27 U/L (17-59); African American GFR (CKD) >90 (>60 ml/min/1.73 sqM); Albumin 4.8 g/dL (3.5-5.0); Alkaline Phosphatase 59 U/L (38-126); Anion Gap 14 mmol/L; Blood Urea Nitrogen 16 mg/dL (9-20); Calcium 9.4 mg/dL (8.4-10.2); Carbon Dioxide 20 mmol/L (22-30); Chloride 106 mmol/L (98-107); Glucose 97 mg/dL (74-99); Non-African American GFR(CKD) >90 (>60 ml/min/1.73 sqM); Potassium 3.6 mmol/L (3.5-5.1); Sodium 140 mmol/L (137-145); Total Bilirubin 1.1 mg/dL (0.2-1.3)
[2022-10-14] MEDS ORDERED: MIDAZOLAM 2 MG/2 ML VIAL IVP ONE (12:08)
[2022-10-14] MEDS ORDERED: SUCCINYLCHOLINE CHLORIDE 200 MG/10 ML VIAL IV ONE (13:18)
[2022-10-14] MEDS ORDERED: PROPOFOL 10 MG/ML 20 ML VIAL IV ONE (13:18)
[2022-10-14] MEDS ORDERED: ROCURONIUM 10 MG/ML (5 ML VIAL) IV ONE (13:18)
[2022-10-14] MEDS ORDERED: fentaNYL (PF) 50 MCG/ML 2 ML AMP ONE (13:18)
[2022-10-14] MEDS ORDERED: MIDAZOLAM 2 MG/2 ML VIAL ONE (13:18)
[2022-10-14] MEDS ORDERED: GLYCOPYRROLATE 0.2 MG/ML 2 ML VIAL ONE (13:18)
[2022-10-14] MEDS ORDERED: NEOSTIGMINE 1 MG/ML 10 ML VIAL ONE (13:18)
[2022-10-14] MEDS ORDERED: LIDOCAINE 2% INJ 20 MG/ML (2 ML VIAL) ONE (13:18)
[2022-10-14] MEDS ORDERED: LACTATED RINGERS 1,000 ML IV ONE ×2 (13:38→15:50)
[2022-10-14] MEDS ORDERED: LIDOCAINE 0.5%-EPI 1:200,000 50 ML VIAL SQ ONE (14:07)
[2022-10-14] MEDS ORDERED: HYDROmorphone 1 MG/ML 1 ML SYRINGE IVP PRN (16:55)
[2022-10-14] MEDS ORDERED: BENZOCAINE/MENTHOL LOZENG 1 EACH LOZENGE MUCOUS MEM PRN (16:55)
[2022-10-14] MEDS ORDERED: SODIUM CHLORIDE 0.9% 2,000 ML IV ONE (16:55)
[2022-10-14] MEDS ORDERED: NALOXONE 0.4 MG/ML 1 ML VIAL IV PRN (16:57)
--- NOTE | 2022-10-14 17:05 | P.OP ---
Date of Procedure: 10/14/22 Description of Procedure: SURGEON: KECIA SR MD PREOPERATIVE DIAGNOSES: 1. Sigmoid diverticulitis 2. Obesity due to excess calories, BMI 31.8 POSTOPERATIVE DIAGNOSES: 1. Sigmoid diverticulitis 2. Obesity due to excess calories, BMI 31.8 OPERATION: 1. Robotic-assisted daVinci Xi sigmoid colectomy with low anterior resection using 29 mm Ethicon powered stapler 2. Intraoperative colonoscopy used for sigmoidoscopy Anesthesia: GETA, local, regional Estimated Blood Loss (ml): 50 Pathology: 1. Sigmoid colon 2. EEA donuts 3. Proximal colotomy Condition: stable Disposition: floor COMPLICATIONS: None. Operative Findings: 1. Sigmoid diverticulitis without 2. Anastomosis with EEA stapler 29 mm 3. No tension or torsion along the anastomosis 4. Doughnuts thick and both sides and viable 5. Moderately redundant sigmoid colon without tension at anastomosis 6. Negative leak test with viable anastomosis. INDICATIONS: The patient is a 36-year-old male who presents with recurrent sigmoid diverticulitis. Benefits and risks of surgical intervention was described in detail including infection, injury to the ureter, colostomy creation, possibility for additional surgery was discussed at length. Informed consent was obtained. All questions of the patient and family were answered. DESCRIPTION: Earlier the patient had undergone a bowel prep using the enhanced colon recovery program. The patient was transferred to the operating room and placed supine. After general induction, the abdomen was prepped and draped in standard sterile fashion. Ioban was placed along the abdomen to minimize any contamination of skin floor. A Hurt catheter was placed. After a timeout protocol was performed, attention was then brought to the left upper quadrant whereby a 0 degree 5 mm laparoscopic trocar entry was performed. The abdominal cavity was entered and insufflated to 15 mmHg pressure, which was tolerated well. Diagnostic laparoscopy confirmed moderately redundant sigmoid colon and active sigmoid volvulus. The small bowel was unremarkable. Next a robotic 12-mm trocar was placed along the right lateral abdominal wall 20 cm superior from the pelvis. Two 8 mm ports were placed along the upper abdomen. Ports were placed 10 cm apart from each other including 20 cm away from the target anatomy of the left pelvis. The 12-mm port was exchanged for an 8 mm robotic port at the left upper quadrant. The robot was docked along the left lateral abdomen. The patient was positioned in steep Trendelenburg position at 21-degrees. Using atraumatic graspers and vessel sealer, the robotic system was docked and primed as described. Instruments were interchanged by the assistant center manager including hook cautery, needle local company tanker driver, robotic stapler and vessel sealer. The robot stapler was prepared along the right lateral abdominal wall. The stapler 12-mm port was arranged along the right lateral abdominal wall. Next, attention was brought to identify the sigmoid colon. The sigmoid mesentery was mobilized using a vessel sealer whereby the descending colon was marked and tagged. Moderate inflammation involving the proximal to mid sigmoid colon was identified from previous rupture and infection. Lysis of adhesions was performed using vessel sealer. Using multiple fires of the robot stapler 60 mm green load, the proximal sigmoid colon was divided. The mesentery of the sigmoid colon was mobilized towards the pelvic brim and sacral promontory using a vessel sealer. Next, the sigmoid colon was divided using the robotic stapler 60 mm black staple loads. The rest of the sigmoid colon mesentery was mobilized using vessel sealer. Additionally, the sigmoid colon was mobilized onto the colon to minimize injury to the ureters. I went to the foot of the bed to confirm sizers and placement of 29-mm Ethicon powered stapler. I re-scrubbed into the case. The robotic arms were temporarily undocked. A 29-mm anvil was placed with a 3-0 silk sutured at the tip of the anvil field contact person. Then the anvil was placed via the left upper quadrant 12 mm port. All robotic arms were re-docked. I went back to the console. The staple line was opened using cautery. The anvil was entered into the proximal descending colon. The colotomy was closed using 60 mm green load. Next, the sharp tip of the anvil field contact person was brought through the staple line. The anvil field contact person was removed from the abdomen using empty clip appliers. I went to the foot of the bed to place the powered Ethicon 29 mm stapler via the rectum. The anvil and stapler were mated for 1 minute. The doughnuts were intact on both sides and thick. An intraoperative leak test was performed as I inserted the colonoscope to the anastomosis. Endoscopic images were obtained. Irrigation was placed in the pelvis and no air leaks were identified. Irrigation fluid was aspirated from the pelvis until dry. I went back to the console. All sponges and needles were removed from the abdominal cavity. The robot was undocked. I re-scrubbed into the case. Via the left upper quadrant port, the sigmoid colon was removed using 15 mm Endo Catch bag. All sponges were removed from the abdominal cavity. The left upper quadrant incision was widened to 3-cm. No contamination had occurred throughout the case. The fascial defect was oversewn using 0 Vicryl and a Jeramie Díaz. Next all pneumoperitoneum was evacuated from the abdominal cavity. The 8-mm trocar sites were reapproximated using 4-0 Monocryl in an interrupted subcuticular fashion. Local anesthetic was infiltrated to all wounds for postop analgesia. All incisions were also cleansed with diluted hydrogen peroxide. An [employer] advance surgical dressing was placed over the colon extraction site. Liquid glue was applied to the rest of the skin incisions. The patient had tolerated the procedure well. The patient was extubated successf ully. The patient was transferred to the postanesthesia care unit in stable condition. Intraoperative findings were described in detail to the patient's family.
[2022-10-14] MEDS ORDERED: KETOROLAC 15 MG/ML 1 ML VIAL IVP ONE (17:25)
[2022-10-14] MEDS ORDERED: HYDROmorphone 0.5 MG/0.5 ML SYRINGE IVP ONE (17:25)
[2022-10-14] MEDS: ALVIMOPAN 12 MG CAPSULE PO SCH (21:06)
[2022-10-14] MEDS: fentaNYL PCA 500 MCG/50 ML BAG IV SCH (21:06)
[2022-10-14] MEDS: METOCLOPRAMIDE 5 MG/ML 2 ML VIAL IVP SCH (21:15)
[2022-10-14] MEDS: ACETAMINOPHEN TAB 500 MG TAB PO SCH (21:16)
[2022-10-14] MEDS: SODIUM CHLORIDE 0.9% 1,000 ML IV SCH (21:17)
[2022-10-14] MEDS: KETOROLAC 15 MG/ML 1 ML VIAL IVP SCH (21:17)
[2022-10-14] MEDS: HEPARIN SODIUM,PORCINE/PF 5,000 UNIT/0.5 ML SYRINGE SQ SCH (21:18)
[2022-10-14] MEDS: ONDANSETRON 4 MG/2 ML VIAL IVP SCH (21:33)
[2022-10-15] MEDS: KETOROLAC 15 MG/ML 1 ML VIAL IVP SCH ×4 (03:09→20:54)
[2022-10-15] MEDS: ONDANSETRON 4 MG/2 ML VIAL IVP SCH ×4 (03:09→20:55)
[2022-10-15] MEDS: METOCLOPRAMIDE 5 MG/ML 2 ML VIAL IVP SCH ×4 (03:09→20:54)
[2022-10-15] MEDS: ACETAMINOPHEN TAB 500 MG TAB PO SCH ×4 (03:10→20:55)
[2022-10-15] MEDS: SODIUM CHLORIDE 0.9% 1,000 ML IV SCH ×2 (06:32→16:25)
--- NOTE | 2022-10-15 07:06 | P.PN ---
Progress Note - Text Progress Note Date: 10/15/22 Patient's resting comfortably in his bed. He has some minimal complaints of incisional pain. The patient wishes to stay another day. He feels is not ready to home. On exam vital signs are stable. Abdomen soft. Incision sites are clean dry intact. Status post laparoscopic robotic low anterior resection. Patient continue receive supportive care. Despite discharged home in 4-48 hours.
[2022-10-15] MEDS: HEPARIN SODIUM,PORCINE/PF 5,000 UNIT/0.5 ML SYRINGE SQ SCH ×2 (08:54→20:55)
[2022-10-15] MEDS: ALVIMOPAN 12 MG CAPSULE PO SCH ×2 (08:54→20:56)
[2022-10-15 12:56] LABS: Basophils % (A) 0 %; Eosinophils # (A) 0.1 k/uL (0-0.7); Eosinophils % (A) 0 %; HCT 38.4 % (39.0-53.0); HGB 12.6 gm/dL (13.0-17.5); Lymphocytes % (A) 7 %; MCH 28.7 pg (25.0-35.0); MCHC 32.8 g/dL (31.0-37.0); MCV 87.6 fL (80.0-100.0); Mean Platelet Volume 7.9; Monocytes # (A) 1.1 k/uL (0-1.0); Monocytes % (A) 8 %; Neutrophils # (A) 12.2 k/uL (1.3-7.7); Neutrophils % (A) 85 %; Platelet Count 185 k/uL (150-450); RBC 4.38 m/uL (4.30-5.90); RDW 13.5 % (11.5-15.5); WBC 14.4 k/uL (3.8-10.6)
[2022-10-15 13:16] LABS: African American GFR (CKD) >90 (>60 ml/min/1.73 sqM); Anion Gap 6 mmol/L; Blood Urea Nitrogen 9 mg/dL (9-20); Calcium 8.4 mg/dL (8.4-10.2); Carbon Dioxide 25 mmol/L (22-30); Chloride 108 mmol/L (98-107); Glucose 103 mg/dL (74-99); Non-African American GFR(CKD) >90 (>60 ml/min/1.73 sqM); Potassium 3.6 mmol/L (3.5-5.1); Sodium 139 mmol/L (137-145)
[2022-10-15] MEDS: fentaNYL PCA 500 MCG/50 ML BAG IV SCH (16:24)
[2022-10-16] MEDS: METOCLOPRAMIDE 5 MG/ML 2 ML VIAL IVP SCH ×2 (03:20→08:21)
[2022-10-16] MEDS: ONDANSETRON 4 MG/2 ML VIAL IVP SCH ×2 (03:21→08:20)
[2022-10-16] MEDS: KETOROLAC 15 MG/ML 1 ML VIAL IVP SCH ×2 (03:21→08:21)
[2022-10-16] MEDS: ACETAMINOPHEN TAB 500 MG TAB PO SCH ×2 (03:21→09:10)
[2022-10-16] MEDS: SODIUM CHLORIDE 0.9% 1,000 ML IV SCH (06:14)
[2022-10-16] MEDS: ALVIMOPAN 12 MG CAPSULE PO SCH (08:14)
[2022-10-16 09:03] LABS: Basophils # (A) 0.02 X 10*3/uL (0.00-0.10); Basophils % (A) 0.2 %; Eosinophils # (A) 0.02 X 10*3/uL (0.04-0.35); Eosinophils % (A) 0.2 %; HCT 38.7 % (39.6-50.0); HGB 12.1 d/dL (12.0-15.0); Lymphocytes # (A) 1.89 X 10*3/uL (0.90-5.00); Lymphocytes % (A) 16.7 %; MCH 27.5 pg (27.0-32.0); MCHC 31.3 d/dL (32.0-37.0); Mean Platelet Volume 10.4 FL (9.5-12.2); Monocytes # (A) 0.82 X 10*3/uL (0.20-1.00); Monocytes % (A) 7.3 %; NRBC Per 100 WBC 0 X 10*3/uL (0.00-0.01); Neutrophils # (A) 8.51 X 10*3/uL (1.80-7.70); Neutrophils % (A) 75.3 %; Platelet Count 190 X 10*3/uL (140-440); RDW 13.2 % (11.5-14.5); WBC 11.29 X 10*3/uL (4.50-10.00)
[2022-10-16] MEDS: HEPARIN SODIUM,PORCINE/PF 5,000 UNIT/0.5 ML SYRINGE SQ SCH (09:10)
[2022-10-16 09:45] LABS: BUN/Creat Ratio 8.38 Ratio (12.00-20.00); Blood Urea Nitrogen 6.7 mg/dL (9.0-27.0); Calcium 8.7 mg/dL (8.7-10.3); Carbon Dioxide 23.2 mmol/L (21.6-31.8); Chloride 105 mmol/L (96-109); Glucose 82 mg/dL (70-110); Potassium 3.7 mmol/L (3.5-5.5); Sodium 140 mmol/L (135-145)
--- NOTE | 2022-10-16 09:50 | P.DS ---
Providers Date of admission: 10/14/22 10:20 Expected date of discharge: 10/16/22 Attending physician: Linn De La Torre Consults: 10/14/22 17:05 Consult Physician Routine Consulting Provider: Varinder Jay Consult Reason/Comments: Medical management Do you want consulting provider notified?: Yes Primary care physician: Varinder Jay Hospital Course: This a 36-year-old male underwent laparoscopic robotic system sigmoid colectomy with Dr. Gibbs. Patient did well postoperative. Discussed her for details. Procedures: Laparoscopic sigmoid colectomy Patient Condition at Discharge: Good Plan - Discharge Summary Discharge Rx Participant: No New Discharge Prescriptions: New Ibuprofen [Motrin] 600 mg PO Q8HR PRN #30 tab PRN Reason: Pain Acetaminophen Tab [Tylenol Tab] 1,000 mg PO Q6HR PRN #30 tablet PRN Reason: Pain Simethicone [Gas-X] 125 mg PO AC-TID PRN #20 capsule PRN Reason: Pain Discontinued Multivitamins, Thera [Multivitamin (formulary)] 1 tab PO DAILY Discharge Medication List Acetaminophen Tab [Tylenol Tab] 1,000 mg PO Q6HR PRN #30 tablet 10/14/22 [Rx] Ibuprofen [Motrin] 600 mg PO Q8HR PRN #30 tab 10/14/22 [Rx] Simethicone [Gas-X] 125 mg PO AC-TID PRN #20 capsule 10/14/22 [Rx] Follow up Appointment(s)/Referral(s): Linn De La Torre MD [STAFF PHYSICIAN] - 10/25/22 ([facility] Dr Calls you between 8 am and 8 pm) Patient Instructions/Handouts: *Surgery [facility] - Managing Your Pain After Surgery Without Opioids, Low Fiber Diet (DC), Colectomy Diet (DC), Laparoscopic Bowel Resection (DC) Activity/Diet/Wound Care/Special Instructions: EXPECT BOWEL MOVEMENT WITH BLOOD FOR 1 WEEK TAKE LAXATIVE FOR CONSTIPATION AFTER 4 DAYS, 10/19/22 Wear abdominal binder for comfort. No lifting over 4 pounds in 4 weeks Nov 14August shower. No bath tub soaks for two weeks Nov 21 Avoid steak, tough meats and seeds such as raspberry seeds. See diverticulitis, low fiber, colectomy diet Use Tylenol and ibuprofen scheduled for the next 24-48 hours for best pain relief. Use ice along incisions for today to prevent swelling. Discharge Disposition: HOME SELF-CARE
[2022-10-16 10:55] VITALS: BP 134/77; PULSE 76; RESP 19; TEMP 98.6
--- NOTE | 2022-10-16 12:59 | P.CONS ---
History of Present Illness - Reason for Consult Consult date: 10/15/22 Medical management - Chief Complaint Recurrent sigmoid diverticulitis - History of Present Illness 36-year-old male patient with past medical history of diverticulosis admitted to the hospital with change in bowel habits related to recurrent episodes of sigmoid diverticulitis with past 6 months; patient reports that he has been diagnosed and treated multiple times with antibiotics with a past 6 months; he was evaluated by general surgery and is recommended sigmoid colectomy; patient is agreeable Patient is status post laparoscopic robot-assisted low anterior resection, POD # 1 Patient does report some incisional pain at this time Review of Systems REVIEW OF SYSTEMS: CONSTITUTIONAL: No fever, no malaise, no fatigue. HEENT: No recent visual problems or hearing problems. Denied any sore throat. CARDIOVASCULAR: No chest pain, orthopnea, PND, no palpitations, no syncope. PULMONARY: No shortness of breath, no cough, no hemoptysis. GASTROINTESTINAL: No diarrhea, no nausea, no vomiting, no abdominal pain. NEUROLOGICAL: No headaches, no weakness, no numbness. HEMATOLOGICAL: Denies any bleeding or petechiae. GENITOURINARY: Denies any burning micturition, frequency, or urgency. MUSCULOSKELETAL/RHEUMATOLOGICAL: Denies any joint pain, swelling, or any muscle pain. ENDOCRINE: Denies any polyuria or polydipsia. The rest of the 14-point review of systems is negative. Past Medical History Past Medical History: Asthma Additional Past Medical History / Comment(s): childhood asthma., hx of perforated appendix and sepsis (01/2021)., diverticulitis. History of Any Multi-Drug Resistant Organisms: None Reported Past Surgical History: Appendectomy Additional Past Surgical History / Comment(s): COLONOSCOPY Past Anesthesia/Blood Transfusion Reactions: No Reported Reaction Additional Past Anesthesia/Blood Transfusion Reaction / Comm: no history of blood transfusions Past Psychological History: No Psychological Hx Reported Smoking Status: Never smoker Past Alcohol Use History: Rare Past Drug Use History: Marijuana Additional Drug Use History / Comment(s): denies current marijuana use - Past Family History Father Family Medical History: Cancer, Hypertension Medications and Allergies Home Medications Medication Instructions Recorded Confirmed Type Acetaminophen Tab [Tylenol Tab] 1,000 mg PO Q6HR PRN #30 tablet 10/14/22 Rx Ibuprofen [Motrin] 600 mg PO Q8HR PRN #30 tab 10/14/22 Rx Simethicone [Gas-X] 125 mg PO AC-TID PRN #20 capsule 10/14/22 Rx Allergies Allergy/AdvReac Type Severity Reaction Status Date / Time No Known Allergies Allergy Verified 10/14/22 11:12 Physical Exam Vitals: Vital Signs Temp Pulse Resp BP Pulse Ox 10/15/22 08:12 98.5 F 91 18 126/76 94 L 10/15/22 02:00 98.8 F 98 17 130/75 98 10/14/22 19:05 81 138/86 99 10/14/22 18:50 81 137/79 98 10/14/22 18:35 85 129/78 99 10/14/22 18:20 84 133/80 99 10/14/22 18:05 98.1 F 79 145/79 100 10/14/22 17:46 76 16 149/72 98 10/14/22 17:32 83 16 152/73 98 10/14/22 17:17 71 16 163/87 96 10/14/22 17:02 83 16 141/72 100 10/14/22 16:47 97.4 F L 87 16 140/69 100 Intake and Output 10/14/22 10/15/22 10/15/22 22:59 06:59 14:59 Intake Total 100 118 Output Total 215 1850 Balance -115 -1850 118 Intake: IV 100 Oral 118 Output: Urine 165 1850 Estimated Blood Loss 50 Other: Voiding Method Toilet # Voids 1 1 Weight 106.5 kg PHYSICAL EXAMINATION: GENERAL: The patient is alert and oriented x3, not in any acute distress. Well d eveloped, well nourished. HEENT: Pupils are round and equally reacting to light. EOMI. No scleral icterus. No conjunctival pallor. Normocephalic, atraumatic. No pharyngeal erythema. No thyromegaly. CARDIOVASCULAR: S1 and S2 present. No murmurs, rubs, or gallops. PULMONARY: Chest is clear to auscultation, no wheezing or crackles. ABDOMEN: Soft, nontender, nondistended, normoactive bowel sounds. No palpable organomegaly. MUSCULOSKELETAL: No joint swelling or deformity. EXTREMITIES: No cyanosis, clubbing, or pedal edema. NEUROLOGICAL: Gross neurological examination did not reveal any focal deficits. SKIN: No rashes. Results CBC & Chem 7: 10/16/22 03:34 10/16/22 03:34 Labs: Abnormal Lab Results - Last 24 Hours (Table) 10/15/22 10/15/22 Range/Units 07:35 07:35 WBC 14.4 H (3.8-10.6) k/uL Hgb 12.6 L (13.0-17.5) gm/dL Hct 38.4 L (39.0-53.0) % Neutrophils # 12.2 H (1.3-7.7) k/uL Monocytes # 1.1 H (0-1.0) k/uL Chloride 108 H (98-107) mmol/L Creatinine 0.63 L (0.66-1.25) mg/dL Glucose 103 H (74-99) mg/dL Assessment and Plan Assessment: 1. Recurrent sigmoid diverticulitis; - Patient is status post laparoscopic robotic-assisted low anterior resection; POD #1 - Surgery on board and plan is supportive care for him for 24 hours prior to discharge home - Patient is encouraged to increase activity - Remains on Hydrea 10 mg IV every 6 hours for nausea; patient has been reporting uncontrolled nausea; we will add Zofran 4 mg IV every 6 hours - Continue with IV fluid hydration with normal saline at a rate of 100 mL an hour DVT prophylaxis with subcu heparin 5000 units every 12 hours Patient is full code
--- NOTE | 2022-10-16 13:00 | P.PN ---
Subjective Progress Note Date: 10/16/22 36-year-old male patient with past medical history of diverticulosis admitted to the hospital with change in bowel habits related to recurrent episodes of sigmoid diverticulitis with past 6 months; patient reports that he has been diagnosed and treated multiple times with antibiotics with a past 6 months; he was evaluated by general surgery and is recommended sigmoid colectomy; patient is agreeable Patient is status post laparoscopic robot-assisted low anterior resection, POD # 1 Patient does report some incisional pain at this time -- Patient reports marked symptomatic improvement this morning; pain is well controlled; is able to ambulate without any issues -- Possible discharge home today once cleared by surgery Objective - Vital Signs Vital signs: Vital Signs Temp 98.6 F 10/16/22 07:39 Pulse 76 10/16/22 07:39 Resp 19 10/16/22 07:39 BP 134/77 10/16/22 07:39 Pulse Ox 98 10/16/22 09:04 FiO2 Intake & Output 10/15/22 10/16/22 10/16/22 18:59 06:59 18:59 Intake Total 236 1200 Balance 236 1200 Intake: Intake, IV Titration 1200 Amount Sodium Chloride 0.9% 1, 1200 000 ml @ 100 mls/hr IV . Q10H [facility] Rx#:[id number] Oral 236 Other: Voiding Method Toilet # Voids 3 - Exam PHYSICAL EXAMINATION: GENERAL: The patient is alert and oriented x3, not in any acute distress. Well developed, well nourished. HEENT: Pupils are round and equally reacting to light. EOMI. No scleral icterus. No conjunctival pallor. Normocephalic, atraumatic. No pharyngeal erythema. No thyromegaly. CARDIOVASCULAR: S1 and S2 present. No murmurs, rubs, or gallops. PULMONARY: Chest is clear to auscultation, no wheezing or crackles. ABDOMEN: Soft, nontender, nondistended, normoactive bowel sounds. No palpable organomegaly. MUSCULOSKELETAL: No joint swelling or deformity. EXTREMITIES: No cyanosis, clubbing, or pedal edema. NEUROLOGICAL: Gross neurological examination did not reveal any focal deficits. SKIN: No rashes. - Labs CBC & Chem 7: 10/16/22 03:34 10/16/22 03:34 Labs: Abnormal Lab Results - Last 24 Hours (Table) 10/15/22 10/15/22 10/16/22 Range/Units 07:35 07:35 03:34 WBC 14.4 H 11.29 H (3.8-10.6) k/uL Hgb 12.6 L (13.0-17.5) gm/dL Hct 38.4 L 38.7 L (39.0-53.0) % MCHC 31.3 L (32.0-37.0) d/dL Neutrophils # 12.2 H 8.51 H (1.3-7.7) k/uL Monocytes # 1.1 H (0-1.0) k/uL Eosinophils # 0.02 L (0.04-0.35) X 10*3/uL Chloride 108 H (98-107) mmol/L BUN (9.0-27.0) mg/dL Creatinine 0.63 L (0.66-1.25) mg/dL BUN/Creatinine Ratio (12.00-20.00) Ratio Glucose 103 H (74-99) mg/dL 10/16/22 Range/Units 03:34 WBC (3.8-10.6) k/uL Hgb (13.0-17.5) gm/dL Hct (39.0-53.0) % MCHC (32.0-37.0) d/dL Neutrophils # (1.3-7.7) k/uL Monocytes # (0-1.0) k/uL Eosinophils # (0.04-0.35) X 10*3/uL Chloride (98-107) mmol/L BUN 6.7 L (9.0-27.0) mg/dL Creatinine (0.66-1.25) mg/dL BUN/Creatinine Ratio 8.38 L (12.00-20.00) Ratio Glucose (74-99) mg/dL Assessment and Plan Assessment: 1. Recurrent sigmoid diverticulitis; - Patient is status post laparoscopic robotic-assisted low anterior resection; POD #1 - Surgery on board and plan is supportive care for him for 24 hours prior to discharge home - Patient is encouraged to increase activity - Remains on Hydrea 10 mg IV every 6 hours for nausea; patient has been reporting uncontrolled nausea; we will add Zofran 4 mg IV every 6 hours - Continue with IV fluid hydration with normal saline at a rate of 100 mL an hour DVT prophylaxis with subcu heparin 5000 units every 12 hours Patient is full code
== END 2022-10-16 13:00 | disposition home or self-care (01) | DRG 329 ==
LOC: 2ORMAIN 10:20 → 4SSUR 17:32
PROVIDERS: ADMIT Surgery Plastic and Reconstructive Surgery; ATTEND Surgery Plastic and Reconstructive Surgery
PROC: 8E0W0CZ Robotic Assisted Procedure of Trunk Region, Open Approach (ICD-10-PCS; 2022-10-14)
PROC: 0DJD8ZZ Inspection of Lower Intestinal Tract, Via Natural or Artificial Opening Endoscopic (ICD-10-PCS; 2022-10-14)
PROC: 0DTN0ZZ Resection of Sigmoid Colon, Open Approach (ICD-10-PCS; principal; 2022-10-14 11:25)
DX: K57.32 Diverticulitis of large intestine without perforation or abscess without bleeding (principal); K56.2 Volvulus; Q43.8 Other specified congenital malformations of intestine; E66.09 Other obesity due to excess calories; J45.909 Unspecified asthma, uncomplicated; Z68.31 Body mass index [BMI] 31.0-31.9, adult; Z82.49 Family history of ischemic heart disease and other diseases of the circulatory system
CPT/HCPCS: 80048; 80053; 85025; 86850; 86900; 86901; 94760